=== PATIENT | male | born 1950 | race Caucasian/White ===

== ENCOUNTER → 2024-08-13 | Outpatient (CLI) | payer MEDICARE, BC, SELFPAY ==
[2024-08-13 12:15] LABS: Albumin, Serum 4.4 gm/dL (3.4-4.8); Anion Gap 6 (7-16); BUN/Creatinine Ratio 16 Ratio (12-20); Blood Urea Nitrogen 26 mg/dL (9-23); Calcium 9.8 mg/dL (8.3-10.6); Calcium (Corrected) 9.8 mg/dL (8.5-10.1); Carbon Dioxide 24.8 mMol/L (20.0-31.0); Chloride 105 mMol/L (98-107); Creatinine (Component) 1.6 mg/dL (0.6-1.3); Glucose 89 mg/dL (74-106); Osmolality,Calculated 275 (275-295); Phosphorous 4.2 mg/dL (2.4-5.1); Sodium 136 mMol/L (136-145); eGFR 45 See Note
== END | disposition home or self-care (01) ==
LOC: COPL 10:32
PROVIDERS: PCP Internal Medicine; Referring Provider Internal Medicine Cardiovascular Disease; Visit Provider Internal Medicine Cardiovascular Disease
DX: I48.21 Permanent atrial fibrillation (principal); I65.21 Occlusion and stenosis of right carotid artery; I63.9 Cerebral infarction, unspecified; N18.31 Chronic kidney disease, stage 3a
CPT/HCPCS: 36415; 80069

== ENCOUNTER → 2024-09-12 | Outpatient (CLI) | payer MEDICARE, BC, SELFPAY ==
[2024-09-12 10:57] LABS: Prostate Specific Antigen 11.58 ng/mL (0-4.00)
== END | disposition home or self-care (01) ==
LOC: SCTO 08:56
PROVIDERS: PCP Internal Medicine; Referring Provider Radiology Therapeutic Radiology; Visit Provider Radiology Therapeutic Radiology
DX: C11.9 Malignant neoplasm of nasopharynx, unspecified (principal); L65.9 Nonscarring hair loss, unspecified; F17.200 Nicotine dependence, unspecified, uncomplicated; C61 Malignant neoplasm of prostate
CPT/HCPCS: 36415; 84153

== ENCOUNTER 2024-09-17 08:52 | Outpatient (RCR) | payer MEDICARE, BC, SELFPAY ==
--- NOTE | 2024-09-17 09:22 | CTCFLWUP_ITS ---
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 C61 prostate cancer. Identification. Patient had previously been seen at the cancer center for 2 separate cancers. In 2008 patient had chemoradiation for nasopharyngeal CA and thus far has no sign of recurrence. In 2018 had robotic surgery [facility] pT3bN1 for prostate CA and postoperation therapy 6040 cGy completed 01/05/2010. Patient received 1 posttreatment Lupron injection under Dr. Saravia's direction. Patient with history of hypertension coronary artery disease underwent stent placement 03/22/2023 and did not wish to continue on with hormone manipulation. Most recent PSA was 10.3 on 05/31/2024. PET scan 08/08/2024 show no interval met disease. Repeat PSA 09/12/2024 shows 11.58 Patient with carotid blockage is being evaluated for surgery. States that he prefers to wait on any hormone manipulating drugs until afterward. He is experiencing no bone pain. I will schedule him for follow-up in 3 months with a prior PSA. Electronically signed by: Ralf Traore M.D. 09/17/2024 9:20 AM
== END 2024-10-01 23:59 | disposition home or self-care (01) ==
LOC: SCTC 08:52
PROVIDERS: PCP Internal Medicine; Referring Provider Internal Medicine; Visit Provider Radiology Therapeutic Radiology
DX: C61 Malignant neoplasm of prostate (principal); Z85.818 Personal history of malignant neoplasm of other sites of lip, oral cavity, and pharynx; Z92.3 Personal history of irradiation; I10 Essential (primary) hypertension; I25.10 Atherosclerotic heart disease of native coronary artery without angina pectoris
CPT/HCPCS: 99213; G0463

== ENCOUNTER → 2024-10-08 | Outpatient (CLI) | payer MEDICARE, BC, SELFPAY ==
[2024-10-08 09:40] LABS: Albumin, Serum 4.4 gm/dL (3.4-4.8); Anion Gap 5 (7-16); BUN/Creatinine Ratio 18 Ratio (12-20); Blood Urea Nitrogen 31 mg/dL (9-23); Calcium 9.6 mg/dL (8.3-10.6); Calcium (Corrected) 9.6 mg/dL (8.5-10.1); Carbon Dioxide 26.8 mMol/L (20.0-31.0); Chloride 107 mMol/L (98-107); Creatinine (Component) 1.7 mg/dL (0.6-1.3); Glucose 93 mg/dL (74-106); Osmolality,Calculated 284 (275-295); Phosphorous 4.7 mg/dL (2.4-5.1); Potassium 4.9 mMol/L (3.4-5.1); Sodium 139 mMol/L (136-145); eGFR 42 See Note
== END | disposition home or self-care (01) ==
PROVIDERS: PCP Internal Medicine; Referring Provider Internal Medicine Cardiovascular Disease; Visit Provider Internal Medicine Cardiovascular Disease
DX: I25.118 Atherosclerotic heart disease of native coronary artery with other forms of angina pectoris (principal); I48.21 Permanent atrial fibrillation; N18.31 Chronic kidney disease, stage 3a
CPT/HCPCS: 36415; 80069

== ENCOUNTER → 2024-11-12 | Outpatient (CLI) | payer MEDICARE, BC, SELFPAY ==
[2024-11-12 09:40] LABS: Basophils # (Auto) 0.1 Thou/mm3 (0.0-0.2); Basophils % (Auto) 1 % (0-2.5); Eosinophils # (Auto) 0.3 Thou/mm3 (0.0-0.5); Eosinophils % (Auto) 4 % (0-10); Hemoglobin 14.1 g/dL (13.5-16.0); Immature Granulocytes % (Auto) 1 % (0-0); Immature Granulocytes Auto 0.04 Thou/mm3 (0.00-0.00); Lymphocytes # (Auto) 1.7 Thou/mm3 (1.0-4.8); Lymphocytes % (Auto) 26 % (10-50); Mean Corpuscular HGB Conc 33.6 g/dl (31.0-37.0); Mean Corpuscular Hemoglobin 33.8 pg (25.0-35.0); Mean Corpuscular Volume 101 fL (80-100); Monocytes # (Auto) 0.7 Thou/mm3 (0.0-0.8); Monocytes % (Auto) 11 % (0-12); Neutrophils # (Auto) 3.8 Thou/mm3 (1.8-7.7); Neutrophils % (Auto) 57 % (37-80); Nucleated Red Blood Cell % 0 /100 WBC (0); Platelet Count 136 Thou/mm3 (140-440); RDW Standard Deviation 56.7 fL (35.1-43.9); Red Blood Count 4.17 Miln/mm3 (4.50-5.90); White Blood Count 6.6 Thou/mm3 (3.8-10.6)
[2024-11-12 09:45] LABS: Partial Thromboplastin Time 26.2 Seconds (22.0-36.0); Prothrombin Time 10.7 Seconds (9.0-12.2)
[2024-11-12 09:58] LABS: Albumin, Serum 4.2 gm/dL (3.4-4.8); Anion Gap 3 (7-16); BUN/Creatinine Ratio 20 Ratio (12-20); Blood Urea Nitrogen 30 mg/dL (9-23); Calcium 9.6 mg/dL (8.3-10.6); Calcium (Corrected) 9.6 mg/dL (8.5-10.1); Carbon Dioxide 28.1 mMol/L (20.0-31.0); Chloride 110 mMol/L (98-107); Creatinine (Component) 1.5 mg/dL (0.6-1.3); Glucose 89 mg/dL (74-106); Osmolality,Calculated 286 (275-295); Phosphorous 4.2 mg/dL (2.4-5.1); Potassium 5.4 mMol/L (3.4-5.1); Sodium 141 mMol/L (136-145); eGFR 49 See Note
== END | disposition home or self-care (01) ==
LOC: COPL 08:48
PROVIDERS: PCP Internal Medicine; Referring Provider Internal Medicine Cardiovascular Disease; Visit Provider Internal Medicine Cardiovascular Disease
DX: Z01.810 Encounter for preprocedural cardiovascular examination (principal)
CPT/HCPCS: 36415; 80069; 85025; 85610; 85730

== ENCOUNTER 2024-12-17 08:20 | Outpatient (RCR) | payer MEDICARE, BC, SELFPAY ==
--- NOTE | 2024-12-17 16:37 | CTCFLWUP_ITS ---
[facility] [address] [place], [place] [address] FOLLOW-UP NOTE Date: 12/17/2024 MR#: [id number] Name: MIKEY HAWKINS : 1950 Dx: C 61 prostate cancer. Patient previous seen at the cancer center for 2 separate cancers. In 2008 had chemoradiation for nasopharyngeal CA and thus far has no sign of recurrence. In 2018 had robotic surgery [facility] pT3b N1 for prostate CA and postop ration therapy 6840 cGy completed 01/05/2010. Received limited Lupron injection under Dr. Valderrama's direction. History of hypertension coronary artery disease underwent stent placement 03/22/2023 and did not wish to continue on with the hormone manipulation. PET scan 08/08/2024 showed no interval met disease. Repeat PSA 09/12/2024 shows 11.58. 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 Doing well overall. Will check his PSA today and see about moving forward regarding his prostate cancer situation. Addendum. Unfortunately his PSA has nearly doubled to 20.98 today. Will check PSMA PET scan and refer him to [facility] medical oncologist who specializes in prostate cancer management. Fearful of hormone manipulation due to his cardiac condition and prior CVA, and abnormal reaction to it in the past. Electronically signed by: Ralf Traore M.D. 12/17/2024 4:35 PM
== END 2024-12-30 23:59 | disposition home or self-care (01) ==
LOC: SCTC 08:20
PROVIDERS: PCP Internal Medicine; Referring Provider Internal Medicine; Visit Provider Radiology Therapeutic Radiology
DX: C61 Malignant neoplasm of prostate (principal); R97.21 Rising PSA following treatment for malignant neoplasm of prostate; Z90.79 Acquired absence of other genital organ(s); Z92.3 Personal history of irradiation
CPT/HCPCS: 99213; G0463

== ENCOUNTER → 2024-12-17 | Outpatient (CLI) | payer MEDICARE, BC, SELFPAY ==
[2024-12-17 11:03] LABS: Prostate Specific Antigen 20.98 ng/mL (0-4.00)
== END | disposition home or self-care (01) ==
PROVIDERS: PCP Internal Medicine; Referring Provider Radiology Therapeutic Radiology; Visit Provider Radiology Therapeutic Radiology
DX: C11.9 Malignant neoplasm of nasopharynx, unspecified (principal); C61 Malignant neoplasm of prostate; F17.200 Nicotine dependence, unspecified, uncomplicated; L65.9 Nonscarring hair loss, unspecified
CPT/HCPCS: 36415; 84153

== ENCOUNTER → 2025-01-03 | Outpatient (CLI) | payer MEDICARE, BC, SELFPAY ==
[2025-01-03 09:08] LABS: Collection Type, Urine Clean Catch
[2025-01-03 09:36] LABS: Basophils % (Auto) 1 % (0-2.5); Eosinophils # (Auto) 0.4 Thou/mm3 (0.0-0.5); Eosinophils % (Auto) 5 % (0-10); Hematocrit 41.3 % (41.0-53.0); Hemoglobin 13.7 g/dL (13.5-16.0); Immature Granulocytes % (Auto) 0 % (0-0); Immature Granulocytes Auto 0.02 Thou/mm3 (0.00-0.00); Lymphocytes % (Auto) 28 % (10-50); Mean Corpuscular HGB Conc 33.2 g/dl (31.0-37.0); Mean Corpuscular Hemoglobin 33.9 pg (25.0-35.0); Mean Corpuscular Volume 102 fL (80-100); Monocytes # (Auto) 0.9 Thou/mm3 (0.0-0.8); Monocytes % (Auto) 13 % (0-12); Neutrophils # (Auto) 3.7 Thou/mm3 (1.8-7.7); Neutrophils % (Auto) 53 % (37-80); Nucleated Red Blood Cell % 0 /100 WBC (0); Platelet Count 132 Thou/mm3 (140-440); RDW Standard Deviation 54.6 fL (35.1-43.9); Red Blood Count 4.04 Miln/mm3 (4.50-5.90)
[2025-01-03 09:41] LABS: Alanine Aminotransferase 23 U/L (10-49); Albumin, Serum 4.1 gm/dL (3.4-4.8); Albumin/Globulin Ratio 2.1 (1.2-2.2); Alkaline Phosphatase 61 U/L (46-116); Anion Gap 6 (7-16); Aspartate Amino Transferase 21 U/L (0-34); BUN/Creatinine Ratio 17 Ratio (12-20); Bilirubin,Total 0.9 mg/dL (0.3-1.2); Blood Urea Nitrogen 25 mg/dL (9-23); Carbon Dioxide 28.5 mMol/L (20.0-31.0); Cardiac Risk Estimate 2.1 RATIO (4.0-6.7); Chloride 108 mMol/L (98-107); Cholesterol 139 mg/dL (132-200); Creatinine (Component) 1.5 mg/dL (0.6-1.3); Glucose 101 mg/dL (74-106); HDL Cholesterol 65 mg/dL (40-60); LDL Cholesterol,Calculated 70 mg/dL (0-130); Osmolality,Calculated 287 (275-295); Potassium 4.9 mMol/L (3.4-5.1); Sodium 142 mMol/L (136-145); Total Protein 6.1 gm/dL (5.7-8.2); Triglycerides < 20 mg/dL (30-150); eGFR 49 See Note
[2025-01-03 09:59] LABS: Bilirubin,Urine Negative (Negative); Blood,Urine Negative (Negative); Clarity,Urine Clear (Clear/Hazy); Color,Urine Yellow (Lt Yel-Yel); Glucose, Urine Negative (Negative); Ketones,Urine Negative (Negative); Leukocyte Esterase,Urine Negative (Negative); Nitrite,Urine Negative (Negative); PH,Urine 6.5 (5.0-7.0); Protein,Urine Trace (Neg - Trace); RBC,Urine 4 /hpf (0-3); Specific Gravity,Urine 1.016 (1.001-1.035); Squamous Epithelial Cell,Urine < 1 /hpf (0-5); Urobilinogen,Urine Negative mg/dL (0.0-1.0); WBC,Urine < 1 /hpf (0-5)
[2025-01-03 10:18] LABS: Parathyroid Hormone Intact 83.9 pg/ml (18.5-88.0)
== END | disposition home or self-care (01) ==
LOC: COPL 08:18
PROVIDERS: PCP Internal Medicine; Referring Provider Internal Medicine; Visit Provider Internal Medicine
DX: E78.5 Hyperlipidemia, unspecified (principal); N18.30 Chronic kidney disease, stage 3 unspecified; I12.9 Hypertensive chronic kidney disease with stage 1 through stage 4 chronic kidney disease, or unspecified chronic kidney disease
CPT/HCPCS: 36415; 80053; 80061; 81001; 83970; 85025

== ENCOUNTER 2025-01-14 12:49 | Outpatient (RCR) | payer MEDICARE, BC, SELFPAY ==
--- NOTE | 2025-01-14 14:46 | CTCFLWUP_ITS ---
[facility] [address] [place], [place] [address] FOLLOW-UP NOTE Date: 01/14/2025 MR#: [id number] Name: MIKEY HAWKINS : 1950 Dx: C 61 prostate cancer Identification. Patient previous seen at the cancer center with 2 separate cancers. In 2008 had chemoradiation for nasopharyngeal CA and thus far has no sign of recurrence. In 2018 patient had robotic surgery [facility] pT3bN1 for prostate CA and postoperation therapy 6840 centigray completed 01/05/2010. Received 1 Lupron injection under urologist, direction. And reportedly had OR 1 day later. History of hypertension coronary artery disease underwent stent placement 03/22/2023 and did not wish to continue on with the hormone manipulation. Most recent PSMA PET January 08, 2025 shows increased uptake in the left common iliac lymph node left internal and external iliac lymph nodes left obturator lymph nodes left perirectal lymph node and multiple left pelvic lymph nodes. Compatible with roc mets. There appeared to be bony mets in the right anterior lateral sixth rib T5 lamina and left T9. There was no evidence of pulmonary or hepatic mets. PSA is also noted to be rising, 11.58 on 09/12/2024 and on 12/17/2024 was 20.98. Patient clearly needs to be on hormone manipulating agents, or some other antineoplastic agents to control his spreading prostate cancer. Patient scheduled to see Dr. Connor oncologist at [facility] who specializes in prostate cancer. Will schedule for follow-up afterward. I took the liberty of putting patient on Casodex 50 mg daily, a mild antiandrogen in the meantime. Electronically signed by: Ralf Traore M.D. 01/14/2025 2:44 PM
== END 2025-01-29 23:59 | disposition home or self-care (01) ==
LOC: SCTC 12:49
PROVIDERS: PCP Internal Medicine; Referring Provider Internal Medicine; Visit Provider Radiology Therapeutic Radiology
DX: C61 Malignant neoplasm of prostate (principal); R97.21 Rising PSA following treatment for malignant neoplasm of prostate; Z85.818 Personal history of malignant neoplasm of other sites of lip, oral cavity, and pharynx; Z92.21 Personal history of antineoplastic chemotherapy; Z92.3 Personal history of irradiation
CPT/HCPCS: 99213; G0463

== ENCOUNTER 2025-02-06 08:00 | Outpatient (RCR) | payer MEDICARE, OTHER, SELFPAY | END 2025-03-01 23:59 | disposition home or self-care (01) | LOC: SCTC 08:00 | PROVIDERS: PCP Internal Medicine; Referring Provider Internal Medicine; Visit Provider Radiology Therapeutic Radiology | DX: C61 Malignant neoplasm of prostate (principal); C79.51 Secondary malignant neoplasm of bone; Z85.818 Personal history of malignant neoplasm of other sites of lip, oral cavity, and pharynx | CPT/HCPCS: 99213; G0463 ==

== ENCOUNTER → 2025-03-13 | Outpatient (CLI) | payer MEDICARE, OTHER, SELFPAY ==
[2025-03-13 09:56] LABS: Basophils % (Auto) 1 % (0-2.5); Eosinophils # (Auto) 0.3 Thou/mm3 (0.0-0.5); Eosinophils % (Auto) 5 % (0-10); Hematocrit 42.7 % (41.0-53.0); Hemoglobin 14.8 g/dL (13.5-16.0); Immature Granulocytes % (Auto) 1 % (0-0); Immature Granulocytes Auto 0.03 Thou/mm3 (0.00-0.00); Lymphocytes # (Auto) 1.2 Thou/mm3 (1.0-4.8); Lymphocytes % (Auto) 19 % (10-50); Mean Corpuscular HGB Conc 34.7 g/dl (31.0-37.0); Mean Corpuscular Volume 98 fL (80-100); Monocytes # (Auto) 0.7 Thou/mm3 (0.0-0.8); Monocytes % (Auto) 11 % (0-12); Neutrophils # (Auto) 4.2 Thou/mm3 (1.8-7.7); Neutrophils % (Auto) 65 % (37-80); Nucleated Red Blood Cell % 0 /100 WBC (0); Platelet Count 150 Thou/mm3 (140-440); RDW Standard Deviation 53.7 fL (35.1-43.9); Red Blood Count 4.35 Miln/mm3 (4.50-5.90); White Blood Count 6.5 Thou/mm3 (3.8-10.6)
[2025-03-13 10:16] LABS: Alanine Aminotransferase 37 U/L (10-49); Albumin, Serum 4.7 gm/dL (3.4-4.8); Albumin/Globulin Ratio 2.1 (1.2-2.2); Alkaline Phosphatase 73 U/L (46-116); Anion Gap 10 (7-16); BUN/Creatinine Ratio 16 Ratio (12-20); Bilirubin,Total 0.8 mg/dL (0.3-1.2); Blood Urea Nitrogen 24 mg/dL (9-23); Calcium 9.6 mg/dL (8.3-10.6); Calcium (Corrected) 9.6 mg/dL (8.5-10.1); Carbon Dioxide 25.5 mMol/L (20.0-31.0); Chloride 109 mMol/L (98-107); Creatinine (Component) 1.5 mg/dL (0.6-1.3); Globulin 2.2 gm/dL (2.3-3.5); Glucose 107 mg/dL (74-106); Osmolality,Calculated 290 (275-295); Potassium 5.2 mMol/L (3.4-5.1); Sodium 144 mMol/L (136-145); Total Protein 6.9 gm/dL (5.7-8.2); eGFR 48 See Note
== END | disposition home or self-care (01) ==
LOC: SCTO 08:16
PROVIDERS: PCP Internal Medicine; Referring Provider Radiology Therapeutic Radiology; Visit Provider Radiology Therapeutic Radiology
DX: C11.9 Malignant neoplasm of nasopharynx, unspecified (principal); L65.9 Nonscarring hair loss, unspecified; F17.200 Nicotine dependence, unspecified, uncomplicated; C61 Malignant neoplasm of prostate
CPT/HCPCS: 36415; 80053; 84153; 85025

== ENCOUNTER → 2025-03-20 | Outpatient (CLI) | payer MEDICARE, OTHER, SELFPAY ==
--- NOTE | 2025-03-20 09:45 | XR_ITS ---
Examination: MRI thoracic spine with intravenous contrast TECHNIQUE: Axial sagittal MR images post intravenous administration 4 cc gadolinium Date and time: 11/20/2024 at 0942 hours INDICATIONS: Diagnosis malignant neoplasm prostate FINDINGS: Abnormal enhancement posterior spinous process in bilateral lamina T5, sagittal image 11 axial image 11 Abnormal enhancement C6 and possible enhancement L1 No abnormal enhancing epidural tumor and no impingement upon the thoracic cord IMPRESSION: Osseous metastatic disease as above
== END | disposition home or self-care (01) ==
PROVIDERS: PCP Internal Medicine; Referring Provider Radiology Therapeutic Radiology; Visit Provider Radiology Therapeutic Radiology
DX: C79.51 Secondary malignant neoplasm of bone (principal); C61 Malignant neoplasm of prostate; C11.9 Malignant neoplasm of nasopharynx, unspecified
CPT/HCPCS: 72147; A9579

== ENCOUNTER 2025-03-24 08:55 | Outpatient (RCR) | payer MEDICARE, OTHER, SELFPAY ==
--- NOTE | 2025-03-19 10:06 | CTCFLWUP_ITS ---
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 2008 chemoradiation for nasopharyngeal CA no sign of recurrence. 03/12/[address] [facility] T3bN1 postop XRT 6840 cGy completed 01/05/2010. Received 1 Lupron shot given by local urologist and had DC 1 day later. PSMA PET January 08, 2025 showed increased uptake in left common iliac node left internal/external left obturator lymph node L perirectal lymph node multiple left pelvic node. Bony mets including T5 T9 and lateral sixth rib. PSA has been climbing and was 20.98 3 18 25. Consultation with prostate cancer specialist Dr. Colby Rodriguez, [facility] who recommended Relogolix for safer cardiovascular profile, which he is tolerating fairly well. PSA has dropped to 5.7 in 03/13/2025. Patient who has been on Relugolix for about 4 weeks, Has also been recommended addition of ARSI darolutamide or enzalutamide after 6 to 8 weeks and monitor PSA every 3 months along with total testosterone until T is suppressed. A#1. History of nasopharyngeal CA 2008 treated with chemoradiation with no sign of recurrence A#2. Prostate CA 2018 T3bN! Postop XRT, limited Lupron injection given by urologist, had DC so this was stopped. A#3. Extensive mets bone and lymph nodes PSMA PET January 08, 2025. A#5. For improved cardiac safety, Relugolix recommended [facility] and after 4 weeks PSA dropped from 21 - 5.7 Patient also tolerated med well. A#6. Medical oncologist Dr. Quispe has been referred for continued care. Dr. Nikolas Rodriguez, [facility] recommends addition of ARSI darolutamide or enzalutamide A#7. Patient will get T-spine MRI tomorrow. A#8. I will see him again in 3 months time. Cc Chucky Diana MD Electronically signed by: Ralf Traore M.D. 03/19/2025 10:04 AM
--- NOTE | 2025-03-26 19:13 | CTCCONSULT_ITS ---
Patient: MIKEY HAWKINS : 1950 MR#: [id number] Page 2 of 3 CONSULTATION NOTE DATE OF CONSULTATION: 03/24/2025 NAME: MIKEY HAWKINS ACCOUNT: [id number] : 1950 AGE: 75 REFERRING PHYSICIAN: Taniya Leiva MD PRIMARY PHYSICIAN: Taniya Leiva MD REASON FOR VISIT: Stent care for prostate cancer ONCOLOGY HISTORY: DIAGNOSIS: Malignant neoplasm of nasopharynx, unspecified [ICD10] C11.9; Malignant neoplasm of nasopharynx, unspecified [ICD10] C11.9; Malignant neoplasm of prostate [ICD10] C61 s/p radical prostatectomy in 2019 A male patient with high-risk prostate cancer (Billie 9, T3N1) and extensive bone metastases presents for follow-up. His history includes prostate surgery, radiation therapy, and Lupron injections. Patient had heart attack following Lupron injection. He does not want to ever go back on Lupron. He recently started oral testosterone suppression medication, reducing PSA from 22.5 to 5.7. He has cardiovascular comorbidities including atrial fibrillation and coronary artery disease requiring two stents. The plan includes continuing current therapy, adding Xtandi (enzalutamide), monitoring PSA levels, and coordinating care with his office services clerk regarding his cardiovascular disease and medications including allopurinol. DATE OF DIAGNOSIS: 10/23/2019 STAGE/TNM: Prostatic adenocarcinoma stage IVb [id number] 4+5 equal 9 [place] score Multifocal extraprostatic extension identified in left posterior lateral aspect surgical resection margin involved in the left posterior aspect one of the lymph nodes were positive for metastatic prostatic carcinoma TREATMENT HISTORY: Care?Plan Start?Date Cycle Day Intent HISTORY OF PRESENT ILLNESS: 75-year-old male with a history of nasopharyngeal cancer status post combined chemo RT completed in September 2009. Patient was later diagnosed in 2019 with a prostatic adenocarcinoma and at that time patient had stage Michael cancer. Patient was treated with Lupron which was followed by admission to the hospital for cardiac event. Patient needed 2 stents placement. Patient after that attributed his heart attack to the Lupron injection. Patient never received any further therapy. Patient now presents to receive treatment for his metastatic prostate cancer. During his a consultation he frequently gets verbally and physically aggressive. Patient is very reluctant to receive any information regarding his diagnosis treatment options and care plan. Patient's insist on continuing consultation and offering him treatment options. 01/08/[address] scanIMPRESSION: Increased radiotraoer uptakes are seen in the left common iliac lymph node. left internal and external iliac lymph nodes. left obturator lymph nodes. left perirectal lymph node and multiple left pelvic lymph nodes are identi?ed. maximum SUV of 71 to 159.24. compatible with roc metastases. PSMA avid bony metastases involving the right anterolateral sixth rib, T5 spinous process and lamina and left T9 lamina are identi?ed as described. No evidence of PSMA avid pulmonary or hepatic metastasis. 03/20/2025 MRI thoracic spine with IV contrastFINDINGS: Abnormal enhancement posterior spinous process in bilateral lamina T5. sagittal image ll axial image ll Abnormal enhancement C6 and possible enhancement Ll No abnormal enhancing epidural tumor and no impingement upon the thoracic cord OTHER MEDICAL HISTORY/CONDITIONS: HEAD AND NECK / PROSTATE STROKE HEART ATTACK CHF CHICKEN POX MONO MUMPS MEASLES APPENDECTITOMY???HERNIA??PROSTECTOMY FAMILY HISTORY: Sibling:?SISTER?BLADDER?CA?/?LIVING SOCIAL HISTORY: Occupational?History:?RETIRED Education?Level:?Completed High School Marital?Status:? Tobacco?Pack?per?Day:?1 Tobacco?Use?Years:?56 ETOH?Use:?SOCIAL Social?History?Note:?LIVES?/ MEDICATIONS: 1. allopurinol - 300 mg 1 tab Daily 2. amiodarone - 200 mg 1 tab Daily 3. amlodipine - 5 mg 1 tab Daily 4. aspirin - 81 mg 1 tab Daily 5. atorvastatin - 80 mg 1 tab Daily 6. calcitriol - 0.5 mcg 1 Capsule Daily 7. clopidogrel - 75 mg 1 tab Daily 8. levothyroxine - 25 mcg 1 tab Daily 9. levothyroxine - 150 mcg 1 tab Daily 10. Lupron Depot - 11. relugolix - 120 mg 1 tab Daily 12. Vitamin B Complex W/C - 1 tab Daily Medications Last Reconciled by Shanell Barrow RN on 03/24/2025 ALLERGIES: No Known Drug Allergies REVIEW OF SYSTEMS: A complete 14-point review of systems was performed and is negative except as noted in interval history. PHYSICAL EXAMINATION: VITAL SIGNS: Temperature?98.2, B/P?154/88, Height?67?inches, Oxygen?Saturation?96% Weight?158?lbs PAIN: 0 - No pain ECOG Performance Status: 0 - Asymptomatic and fully active GENERAL APPEARANCE: Appears well, in no apparent distress, appropriately interactive. HEENT: Normocephalic, no temporal wasting, normal conjunctiva, no scleral icterus, normal hearing, lips without lesions, neck normal range of motion. CARDIOVASCULAR: Not assessed. PULMONARY: Normal respiratory effort, no respiratory distress or use of accessory muscles, speaking in full sentences, no tachypnea. EXTREMITIES: No pedal edema or cyanosis. SKIN: Normal skin appearance. NEUROLOGIC: Alert and oriented x4. PSHYCHIATRIC verbally and physically very aggressive. LABORATORY DATA: I have personally reviewed and interpreted each of the patient?s relevant lab tests, abnormal findings are below: Date 01/03/25 03/13/25 ??WHITE?BLOOD?COUNT?(Thou/mm3) 7.0 6.5 ??RED?BLOOD?COUNT?(Miln/mm3) 4.04?L 4.35?L ??HEMOGLOBIN?(gm/dl) 13.7 14.8 ??HEMATOCRIT?(%) 41.3 42.7 ??PLATELET?COUNT?(Thou/mm3) 132?L 150 ??NEUTROPHILS?%,?AUTO?(%) 53 65 ??LYMPH?%,?AUTO?(%) 28 19 ??NEUTROPHILS,?AUTO?(Thou/mm3) 3.7 4.2 ??GLUCOSE,RANDOM?(mg/dL) 101 107?H ??BLOOD?UREA?NITROGEN?(mg/dL) 25?H 24?H ??CREATININE?(mg/dL) 1.50?H 1.50?H ??SODIUM?(mmol/L) 142 144 ??POTASSIUM?(mmol/L) 4.9 5.2?H ??CHLORIDE?(mmol/L) 108?H 109?H ??CrCl?(CandG)?(ml/min) 43.52 43.13 ??AST/SGOT?(Unit/L) 21 ? ??ALT/SGPT?(Unit/L) 23 37 ??ALKALINE?PHOSPHATASE?(Unit/L) 61 73 ??BILIRUBIN,?TOTAL?(mg/dL) 0.9 0.8 ??PROTEIN?TOTAL?(gm/dl) 6.1 6.9 ??ALBUMIN,?SERUM?(gm/dl) 4.1 4.7 ??GLOBULIN?(gm/dl) 2.0?L 2.2?L ??ALBUMIN/GLOBULIN?RATIO 2.1 2.1 ??CALCIUM,?SERUM?(mg/dL) 9.0 9.6 ??CALCIUM?SERUM?(CORRECTED)?(mg/dL) 9.0 9.6 Laboratory, Imaging, and Diagnostic Test Results - Billie score: 9 (5+4) - Cancer staging: T3N1 - PSA: - Recent: 5.7 - Previous: 22.5 - PSMA PET scan (August 2020): No metastatic disease - PSMA PET scan (more recent, date not specified): Extensive metastases - T5 thoracic vertebrae involvement - Left T9 laminae involvement - 6th rib involvement - Several abdominal lymph nodes involved - Cardiac catheterization (recent, specific date not mentioned): Results not provided - Previous cardiac catheterization (date not specified): - 70-80% coronary artery blockage (specific vessels not mentioned) - Two stents placed - Right carotid artery: 90% stenosis (date not specified) ASSESSMENT/PLAN: Metastatic prostate cancer Patient was started on Relogolix for safer cardiovascular profile Patient is tolerating and responding well Discussed adding Xtandi to his regimen secondary to its better cardiac profile compared to abiraterone Will order Xtandi Advised patient to follow-up with cardiology closely Patient will do his labs and follow-up with us once the medication is available ORDERS: Order # Description [id number] Follow Up 3 Months CBC CMP PSA RETURN TO CLINIC: I will see him back in the clinic in 3 months. BILLING AND COMPLIANCE: I reviewed external records from providers outside my specialty as summarized above. I spent a total of 50 minutes on this patient?s care on the day of their visit excluding time spent related to any billed procedures. This time includes time spent with the patient as well as time spent documenting in the medical record, reviewing patients records and tests, obtaining history, placing orders, communicating with other healthcare professionals, counseling the patient, family or caregiver, and/or care coordination for the diagnoses above. Electronically Signed by: Froylan Quispe MD T: 7:11 PM CC: [place],? PCP: Taniya Leiva Referring: Taniya Leiva This document was completed utilizing speech recognition software. Grammatical errors, random word insertions, pronoun errors, and incomplete sentences are an occasional consequence of this system due to software limitations, ambient noise, and hardware issues. Any formal questions or concerns about the content, text or information contained within the body of this dictation should be directly addressed to the provider for clarification.
== END 2025-03-31 23:59 | disposition home or self-care (01) ==
LOC: SCTC 08:55
PROVIDERS: PCP Internal Medicine; Referring Provider Nurse Practitioner Family; Visit Provider Internal Medicine Hematology & Oncology
DX: C61 Malignant neoplasm of prostate (principal); C79.51 Secondary malignant neoplasm of bone; Z90.79 Acquired absence of other genital organ(s); Z85.818 Personal history of malignant neoplasm of other sites of lip, oral cavity, and pharynx; Z92.3 Personal history of irradiation; I25.2 Old myocardial infarction; I25.10 Atherosclerotic heart disease of native coronary artery without angina pectoris; Z95.5 Presence of coronary angioplasty implant and graft
CPT/HCPCS: 99213; G0463

== ENCOUNTER → 2025-04-03 | Outpatient (CLI) | payer MEDICARE, OTHER, SELFPAY ==
[2025-04-03 08:38] LABS: Collection Type, Urine Clean Catch; Squamous Epithelial Cell,Urine 0 /hpf (0-5)
[2025-04-03 09:09] LABS: Basophils # (Auto) 0.1 Thou/mm3 (0.0-0.2); Basophils % (Auto) 1 % (0-2.5); Eosinophils # (Auto) 0.4 Thou/mm3 (0.0-0.5); Eosinophils % (Auto) 7 % (0-10); Hematocrit 42.1 % (41.0-53.0); Hemoglobin 14.7 g/dL (13.5-16.0); Immature Granulocytes Auto 0.02 Thou/mm3 (0.00-0.00); Lymphocytes # (Auto) 1.3 Thou/mm3 (1.0-4.8); Lymphocytes % (Auto) 22 % (10-50); Mean Corpuscular HGB Conc 34.9 g/dl (31.0-37.0); Mean Corpuscular Hemoglobin 34.5 pg (25.0-35.0); Mean Corpuscular Volume 99 fL (80-100); Monocytes # (Auto) 0.6 Thou/mm3 (0.0-0.8); Monocytes % (Auto) 11 % (0-12); Neutrophils # (Auto) 3.4 Thou/mm3 (1.8-7.7); Neutrophils % (Auto) 60 % (37-80); Nucleated Red Blood Cell # 0.00 Thou/mm3 (0.00-0.00); Nucleated Red Blood Cell % 0 /100 WBC (0); Platelet Count 131 Thou/mm3 (140-440); RDW Standard Deviation 53.0 fL (35.1-43.9); Red Blood Count 4.26 Miln/mm3 (4.50-5.90); White Blood Count 5.7 Thou/mm3 (3.8-10.6)
[2025-04-03 09:17] LABS: Prostate Specific Antigen 4.18 ng/mL (0-4.00)
[2025-04-03 09:35] LABS: Creatinine MALB Rnd Ur 122 mg/dL (30-125); Microalbumin Creat Ratio 108 mg/gCrea (<30); Microalbumin, Random Urine 132 mg/L (0-300)
[2025-04-03 09:38] LABS: Alanine Aminotransferase 35 U/L (10-49); Albumin, Serum 4.5 gm/dL (3.4-4.8); Albumin/Globulin Ratio 1.8 (1.2-2.2); Alkaline Phosphatase 72 U/L (46-116); Anion Gap 5 (7-16); Aspartate Amino Transferase 33 U/L (0-34); BUN/Creatinine Ratio 13 Ratio (12-20); Bilirubin,Total 0.8 mg/dL (0.3-1.2); Blood Urea Nitrogen 20 mg/dL (9-23); Calcium 9.7 mg/dL (8.3-10.6); Calcium (Corrected) 9.7 mg/dL (8.5-10.1); Carbon Dioxide 27.2 mMol/L (20.0-31.0); Cardiac Risk Estimate 2.4 RATIO (4.0-6.7); Chloride 108 mMol/L (98-107); Cholesterol 180 mg/dL (132-200); Creatinine (Component) 1.5 mg/dL (0.6-1.3); Free T4 (Free Thyroxine) 1.92 ng/dL (0.89-1.76); Globulin 2.5 gm/dL (2.3-3.5); Glucose 102 mg/dL (74-106); HDL Cholesterol 74 mg/dL (40-60); LDL Cholesterol,Calculated 84 mg/dL (0-130); Osmolality,Calculated 282 (275-295); Potassium 5.4 mMol/L (3.4-5.1); Sodium 140 mMol/L (136-145); Thyroid Stimulating Hormone 3.52 uIU/mL (0.55-4.78); Total Protein 7.0 gm/dL (5.7-8.2); Triglycerides 110 mg/dL (30-150); eGFR 48 See Note
[2025-04-03 09:49] LABS: Bilirubin,Urine Negative (Negative); Blood,Urine Trace (Negative); Clarity,Urine Clear (Clear/Hazy); Color,Urine Yellow (Lt Yel-Yel); Glucose, Urine Negative (Negative); Hyaline Casts,Urine < 1 /hpf (0-1); Ketones,Urine Negative (Negative); Leukocyte Esterase,Urine Negative (Negative); Nitrite,Urine Negative (Negative); PH,Urine 5.5 (5.0-7.0); Protein,Urine 1+ (Neg - Trace); RBC,Urine 3 /hpf (0-3); Specific Gravity,Urine 1.017 (1.001-1.035); Urobilinogen,Urine Negative mg/dL (0.0-1.0); WBC,Urine 1 /hpf (0-5)
== END | disposition home or self-care (01) ==
LOC: COPL 07:38
PROVIDERS: PCP Internal Medicine; Referring Provider Internal Medicine; Visit Provider Internal Medicine
DX: I12.9 Hypertensive chronic kidney disease with stage 1 through stage 4 chronic kidney disease, or unspecified chronic kidney disease (principal); N18.30 Chronic kidney disease, stage 3 unspecified; E78.5 Hyperlipidemia, unspecified; E03.9 Hypothyroidism, unspecified; C61 Malignant neoplasm of prostate
CPT/HCPCS: 36415; 80053; 80061; 81001; 82043; 82570; 84153; 84439; 84443; 85025

== ENCOUNTER 2025-04-08 09:26 | Outpatient (RCR) | payer MEDICARE, OTHER, SELFPAY ==
--- NOTE | 2025-04-08 10:48 | CTCFLWUP_ITS ---
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 2008 chemoradiation for nasopharyngeal CA no sign of recurrence. 03/12/2019 radical prostectomy [facility] T3b N1 postop XRT 6840 centigray completed 01/05/2010. Received 1 Lupron shot given by local urologist had [place] 1 day later. PSA has been rising up to 21 and 12/17/2024. PSMA PET January 08, 2025 showed increased uptake left common iliac node left internal/external left obturator lymph node left perirectal lymph node multiple left pelvic node. Bone mets T5-9 lateral 6 rib. MRI T-spine 03/20/2025 osseous mets but no sign of any impending fracture or impingement on the spinal cord. Dr. Colby Connor MD prostate cancer special [facility] recommended Relugolix with improved CVS profile, which has lowered his PSA to 4.18 on most recent blood draw of 04/03/2025. Saw Dr. Quispe 03/24/2025 who has ordered Xtandi Patient states that he prefers to be followed by Dr. Connor of [facility] from now on. Said he will call for the appointment. Given a follow-up appointment with [facility] t for 2 months from now. Electronically signed by: Ralf Traore M.D. 04/08/2025 10:45 AM
== END 2025-05-01 23:59 | disposition home or self-care (01) ==
LOC: SCTC 09:26
PROVIDERS: PCP Internal Medicine; Referring Provider Internal Medicine; Visit Provider Radiology Therapeutic Radiology
DX: C61 Malignant neoplasm of prostate (principal)
CPT/HCPCS: 99212; G0463

== ENCOUNTER 2025-05-31 11:16 | Inpatient (IN) | payer MEDICARE, OTHER, SELFPAY ==
[2025-05-31] VITALS (10 sets, daily range): BP systolic 121–189; BP diastolic 69–99; PULSE 66–82; RESP 16–95; TEMP 36.2–36.9; O2SAT 94–96; BMI 24.3
--- NOTE | 2025-05-31 11:56 | XR_ITS ---
Examination: CT abdomen with intravenous contrast CT pelvis with intravenous contrast 2-D coronal reconstructions 2-D sagittal reconstructions Date and time of exam:May 31, 2025, 1408 hrs., Comparison August 18, 2024. Indications: Abdominal pain and rectal bleeding beginning yesterday.. CTDI: vol (mGy) 6.91 DLP: (mGycm) 387 Technique: Multiple axial sections of the abdomen and pelvis have been obtained. 64 slice high-resolution scanner used. 3 mm axial sections have been obtained, post intravenous injection 60 cc [id number]-370 2-D sagittal, coronal reconstructions obtained. Low dose protocols were performed. One or more of the following dose reduction techniques were used; automated exposure control, adjustment of the mA and/or KV according to patient size, use of iterative reconstruction technique. Findings: No focal liver or splenic lesions. No gallstones. No pancreatic mass. Nodular thickening left adrenal gland. Moderate renal parenchymal scar formation. Infrarenal abdominal aortic aneurysm, AP dimension 3.7 cm, no free blood in the abdomen. No bowel obstruction No pericecal inflammatory change. Colonic diverticulosis Rectal wall axial image 191 is diffusely thickened Urinary bladder intact. Moderate osteopenia Impression: Moderate bilateral renal parenchymal scar formation Infrarenal abdominal aortic aneurysm AP dimension 3.7 cm Colonic diverticulosis. Rectal wall is thickened, differential would include proctitis, rectal tumor, recommend direct inspection.
--- NOTE | 2025-05-31 11:58 | PD.EDRME ---
Rapid Medical Screening Exam RME Arrival date/time: 05/31/25 11:16 Chief Complaint: GI Bleed Time Seen by Provider: 05/31/25 11:36 Vital signs: Vital Signs Temperature 98.1 F 05/31/25 11:33 Pulse Rate 82 05/31/25 11:33 Respiratory Rate 18 05/31/25 11:33 Blood Pressure 121/69 05/31/25 11:33 Pulse Oximetry (%) 96 05/31/25 11:33 Oxygen Delivery Method Room Air 05/31/25 11:33 RME Narrative: 75-year-old male with history of recurrent prostate cancer here for rectal bleeding x 4 days. States is concerned due to history in the past of GI bleed from Eliquis. No longer on Eliquis is on Plavix 75. He thinks the new medication accounting for possible side effects is darolutamide 2 tab 300mg bid.
--- NOTE | 2025-05-31 12:23 | EKG_ITS ---
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
--- NOTE | 2025-05-31 12:24 | PD.EDGIBLD ---
ED GI Bleed RME/HPI General Chief complaint: GI Bleed Stated complaint: RECAL BLEED Time Seen by Provider: 05/31/25 11:36 Arrival date/time: 05/31/25 11:16 RME / HPI RME / HPI Narrative: 75-year-old male with history of recurrent prostate cancer here for rectal bleeding x 4 episodes since this morning severity moderate. Described as melanotic stool. Associated with lower abdominal pain, described as dull ache, symptoms are moderate. States is concerned due to history in the past of GI bleed from Eliquis. No longer on Eliquis is on Plavix 75 and aspirin 81 mg p.o. daily. He thinks the new medication accounting for possible side effects is darolutamide 2 tab 300mg bid for recurrence of prostate cancer. Related Data Home Medications ?Medication ?Instructions ?Recorded ?Confirmed aspirin 81 mg tablet 81 mg PO QDAY 01/07/21 07/23/24 atorvastatin 80 mg tablet 80 mg PO QDAY 01/07/21 07/23/24 clopidogrel 75 mg tablet 75 mg PO QPM 01/07/21 07/23/24 allopurinol 300 mg tablet 300 mg PO DAILY 03/22/23 07/23/24 amiodarone 200 mg tablet 200 mg PO BID 03/22/23 07/23/24 atenolol 50 mg tablet 50 mg PO BID 03/22/23 07/23/24 levothyroxine 25 mcg tablet 150 mcg PO DAILY 03/22/23 07/23/24 Previous Rx's ?Medication ?Instructions ?Recorded calcitriol 0.25 mcg capsule 0.5 mcg (2 x 0.25 mcg) PO QDAY #30 01/09/21 caps Allergies Allergy/AdvReac Type Severity Reaction Status Date / Time No Known Allergies Allergy Verified 05/31/25 11:19 Review of Systems Review of Systems Narrative Review of Systems: Review of system reviewed and within normal limits except mentioned in HPI ED Exam Narrative Physical exam: VITAL SIGNS: Reviewed. GENERAL APPEARANCE: Alert and interactive, follows commands, no acute distress, HEAD AND FACE: Non-traumatic. ENT: PERRL, pink conjunctivitis, eyelid no trauma, Mucous membrane moist. NECK: Supple, nontender, no nuchal rigidity. CHEST: No tenderness, no crepitus, no paradoxical movement, no retractions. LUNGS: Clear, well ventilated, symmetric, no rales, no wheezing, no ronchi, no stridor, good breath sounds bilaterally. HEART: Regular rate, regular rhythm, no murmur, no gallops. ABDOMEN: Soft, positive bowel sounds, nondistended, no guarding, lower abdominal tenderness, no rebound, no masses, RECTAL: Done by me, and significant melanotic stool noted on the examining finger, strongly positive for occult blood no active bleeding noted GENITAL: Deferred. NEUROLOGICAL: Gross motor function intact sensory function intact, Appropriate for age. MUSCULOSKELETAL: low back nontender, full range of motion. EXTREMITIES: Nontender, full range of motion. SKIN: Color pink, dry, no rash, no lacerations, no abrasions, no contusions. LYMPHATICS: Deferred. Course Quality Measures none Orders Category Date Time Status COVID-19 Screening Questionnaire NOW Care 05/31/25 14:[address] Screening NOW Care 05/31/25 11:57 Active Decision to Admit X1 Care 05/31/25 14:39 Active EKG (ED ONLY) *Do not use* NOW Care 05/31/25 12:23 Completed IV [Insert IV] NOW Care 05/31/25 11:56 Active NPO after Midnight ONCE Care 05/31/25 14:34 Active Occult Blood,Stool (Nursing) ONCE Care 05/31/25 12:22 Active Consult to Gastroenterology Stat Cons 05/31/25 13:29 Ordered Diet NPO after Midnight Diet 06/01/25 00:[address] abdomen pelvis w con Stat Exams 05/31/25 11:56 Completed EKG (ED Only) Stat Exams 05/31/25 12:23 Draft CBC Stat Lab 05/31/25 12:35 Completed CMP [Comprehensive Metabolic Panel] Stat Lab 05/31/25 12:35 Completed Lipase Stat Lab 05/31/25 12:35 Completed PT [Prothrombin Time with INR] Stat Lab 05/31/25 12:35 Completed PTT [Partial Thromboplastin Time] Stat Lab 05/31/25 12:35 Completed Troponin I Stat Lab 05/31/25 12:35 Completed Type and Screen Stat Lab 05/31/25 12:35 Completed UA [Urinalysis] Stat Lab 05/31/25 11:57 Ordered Morphine Inj Med 05/31/25 12:22 Discontinued 4 mg IVP X1 ONE Ondansetron Inj [Zofran Inj] Med 05/31/25 12:22 Discontinued 4 mg IVP X1 ONE Pantoprazole Inj [Protonix Inj] Med 05/31/25 12:22 Discontinued 80 mg IVP X1 ONE cefTRIAXone/D5w 1gm IV premix [Rocephin/D5w 1gm IV Med 05/31/25 12:22 Discontinued premix] 1 gm in 50 ml IV X1 Vital Signs Vital signs: Vital Signs Temperature 98.1 F 05/31/25 11:33 Pulse Rate 82 05/31/25 11:33 Respiratory Rate 18 05/31/25 11:33 Blood Pressure 121/69 05/31/25 11:33 Pulse Oximetry (%) 96 05/31/25 11:33 Oxygen Delivery Method Room Air 05/31/25 11:33 GI Bleed MDM Narrative MDM Narrative:: 75-year-old male with history of recurrent prostate cancer here for rectal bleeding x 4 episodes since this morning severity moderate. Described as melanotic stool. Associated with lower abdominal pain, described as dull ache, symptoms are moderate. States is concerned due to history in the past of GI bleed from Eliquis. No longer on Eliquis is on Plavix 75 and aspirin 81 mg p.o. daily. He thinks the new medication accounting for possible side effects is darolutamide 2 tab 300mg bid for recurrence of prostate cancer. EKG showed sinus rhythm, ventricular rate of 70 bpm, no ST segment elevation or depressions. Patient's hemoglobin showed a drop of 1.8 from 14.7-13.3. A month ago. Rectal exam showed melanotic stool strongly positive for occult blood no active bleeding noted. CT scan of the abdomen and pelvis showed Moderate bilateral renal parenchymal scar formation Infrarenal abdominal aortic aneurysm AP dimension 3.7 cm Colonic diverticulosis. Rectal wall is thickened, differential would include proctitis, rectal tumor, recommend direct inspection. Patient received ceftriaxone IV morphine Zofran and Protonix IV. Discussed the case with GI specialist Dr. Haines, and told me to place the patient on n.p.o. for possible scope tomorrow Discussed case with hospitalist, who accepted admission. Patient data External records reviewed:: None Clinical information provided by:: patient Social determinants that could affect healthcare access:: none Patient has the following chronic illnesses:: History of prostate cancer How is presenting disease/condition affected by chronic disease/condition?: exacerbated by Evaluation data The following diagnostics were reviewed and interpreted by me:: lab results, radiology exam(s) and EKG tracing(s) Lab and/or radiology exams considered but not ordered:: None Interpretation Summary: See results MDM Medications / Prescriptions Medications or Prescriptions considered but not ordered:: None Medication administrations:: Medication Administration History Discontinued Medications Ceftriaxone Sodium/Dextrose (Rocephin/D5w 1gm Iv Premix) 1 gm in 50 mls @ 100 mls/hr IV X1 ONE Stop: 05/31/25 12:51 Last Admin: 05/31/25 13:06 Dose: 100 mls/hr Documented By: ED Morphine Sulfate (Morphine Sulf Inj 10 Mg/Ml Vial) 4 mg IVP X1 ONE Stop: 05/31/25 12:23 Last Admin: 05/31/25 12:59 Dose: 4 mg Documented By: ED Ondansetron HCl (Ondansetron Inj 2 Mg/Ml Inj 2 Ml) 4 mg IVP X1 ONE; Protocol Stop: 05/31/25 12:23 Last Admin: 05/31/25 12:53 Dose: 4 mg Documented By: ED Pantoprazole Sodium (Pantoprazole Inj 40 Mg Vial) 80 mg IVP X1 ONE Stop: 05/31/25 12:23 Last Admin: 05/31/25 13:03 Dose: 80 mg Documented By: ED Protonix, Zofran, morphine and ceftriaxone IV Consultations Consultation(s) initiated? (list below): Yes Consultation #1 (Physician, Specialty, Details): Dr. Haines thank you DrYolande Diagnosis GI bleed differential diagnosis: infectious diarrhea, Upper gastrointestinal hemorrhage, Lower gastrointestinal hemorrhage and hematochezia Most likely diagnosis given after review of the tests above:: GI bleed, Admission Indicated Admission indicated?: indicated Admission Request Was there a request for admission?: Yes Admission Attestation Admission request attestation: Discussed case with [Dr. Arciniega] from Hospitalist service regarding admission. Discussed patients ED course, exam findings, labs, and radiology results. The Hospitalist [agrees] to accept the patient for admission. Disposition Plan Disposition Plan: Admit Discharge Plan Plan Patient Disposition: Admit Acute Care w/in Hospital Discharge Disposition comment: stable Prescriptions/Referrals Prescriptions/Med Rec: No Action atorvastatin 80 mg Tablet 80 mg PO QDAY aspirin 81 mg Tablet 81 mg PO QDAY clopidogrel 75 mg Tablet 75 mg PO QPM calcitriol 0.25 mcg Capsule 0.5 mcg PO QDAY Qty: 30 0RF levothyroxine 25 mcg tablet 150 mcg PO DAILY amiodarone 200 mg Tablet 200 mg PO BID allopurinol 300 mg Tablet 300 mg PO DAILY atenolol 50 mg Tablet 50 mg PO BID Referrals: Jones Diana MD [Primary Care Provider] - In 1 week Problem List Clinical Impression: GI bleed, History of prostate cancer Patient/Caregiver Discharge Instructions Print Language: [place] Stand Alone Forms: [facility] Award Info., Patient Portal Info Letter
--- NOTE | 2025-05-31 12:33 | PC.NURSE ---
Pt. here to bed 10 from home, pt. states he had a BM this morning and there was bright red blood.
--- NOTE | 2025-05-31 12:35 | PC.NURSE ---
Pt. states he has prostate cancer even though he had his prostate removed 5 years ago. is bedside and states this is pt.'s 3rd round of cancer. Pt. states he is SOB, pt. states he has been SOB since his heart attack 5 years ago.
[2025-05-31] MEDS: ONDANSETRON INJ 2 MG/ML INJ 2 ML 4 MG IVP (12:53)
[2025-05-31] MEDS: MORPHINE SULF INJ 10 MG/ML VIAL 4 MG IVP (12:59)
[2025-05-31 13:00] LABS: Basophils # (Auto) 0.0 Thou/mm3 (0.0-0.2); Basophils % (Auto) 1 % (0-2.5); Eosinophils # (Auto) 0.3 Thou/mm3 (0.0-0.5); Eosinophils % (Auto) 3 % (0-10); Hematocrit 38.7 % (41.0-53.0); Hemoglobin 13.3 g/dL (13.5-16.0); Immature Granulocytes Auto 0.02 Thou/mm3 (0.00-0.00); Lymphocytes # (Auto) 1.4 Thou/mm3 (1.0-4.8); Lymphocytes % (Auto) 16 % (10-50); Mean Corpuscular HGB Conc 34.4 g/dl (31.0-37.0); Mean Corpuscular Hemoglobin 35.7 pg (25.0-35.0); Mean Corpuscular Volume 104 fL (80-100); Monocytes # (Auto) 1.2 Thou/mm3 (0.0-0.8); Monocytes % (Auto) 15 % (0-12); Neutrophils # (Auto) 5.3 Thou/mm3 (1.8-7.7); Neutrophils % (Auto) 65 % (37-80); Nucleated Red Blood Cell # 0.00 Thou/mm3 (0.00-0.00); Nucleated Red Blood Cell % 0 /100 WBC (0); Platelet Count 140 Thou/mm3 (140-440); RDW Standard Deviation 55.5 fL (35.1-43.9); Red Blood Count 3.73 Miln/mm3 (4.50-5.90); White Blood Count 8.2 Thou/mm3 (3.8-10.6)
[2025-05-31] MEDS: cefTRIAXone/D5w 1gm IV premix 1 GM/50 ML BAG IV (13:06)
--- NOTE | 2025-05-31 13:10 | PC.NURSE ---
Pt. coughing, states he has been a smoker 57 years.
[2025-05-31 13:13] LABS: INR 1.0 (0.9-1.3); Partial Thromboplastin Time 24.5 Seconds (22.0-36.0); Prothrombin Time 10.7 Seconds (9.0-12.2)
[2025-05-31 13:19] LABS: Alanine Aminotransferase 36 U/L (10-49); Albumin, Serum 4.2 gm/dL (3.4-4.8); Albumin/Globulin Ratio 2.0 (1.2-2.2); Alkaline Phosphatase 72 U/L (46-116); Anion Gap 10 (7-16); Aspartate Amino Transferase 33 U/L (0-34); BUN/Creatinine Ratio 16 Ratio (12-20); Bilirubin,Total 0.8 mg/dL (0.3-1.2); Blood Urea Nitrogen 22 mg/dL (9-23); Calcium 9.9 mg/dL (8.3-10.6); Calcium (Corrected) 9.9 mg/dL (8.5-10.1); Carbon Dioxide 22.4 mMol/L (20.0-31.0); Chloride 111 mMol/L (98-107); Creatinine (Component) 1.4 mg/dL (0.6-1.3); Estimated Creatinine Clearance 44.1 mL/min (>60); Globulin 2.1 gm/dL (2.3-3.5); Glucose 135 mg/dL (74-106); Lipase 38 U/L (12-53); Osmolality,Calculated 290 (275-295); Potassium 4.1 mMol/L (3.4-5.1); Sodium 143 mMol/L (136-145); Total Protein 6.3 gm/dL (5.7-8.2); Troponin I 0.024 ng/mL (0.0-0.045); eGFR 52 See Note
--- NOTE | 2025-05-31 15:35 | ESHP_ITS ---
<Statement entered by Matilda Arciniega MD - 05/31/25 18:13> Patient was seen and examined at bedside. I agree on the assessment and plan on this note as documented by resident Dana Mims MD PGY1. 75-year-old male with past medical history of prostate adenocarcinoma stage IVb, hypertension, atrial fibrillation, CAD status post PCI LAD follows Dr. Rodriguez, hypothyroidism and history of nasopharyngeal carcinoma who presented to [facility] with a chief complaint of bright red blood in stool, patient reports experiencing crampy pain in lower abdomen which has worsened since yesterday, this morning patient noticed bright red blood on toilet paper, denied any pain. Patient does endorse an episode of nonbloody emesis last night. Rectal exam done by ED provider showed dark stool and positive FOBT. Patient does have history of 54 smoking pack years, daily alcohol use reports drinking 3-4 beers per day and occasional liquor. CT abdomen pelvis in ED did show infrarenal abdominal aneurysm, diverticulosis, rectal wall thickening with differential proctitis. Was given ceftriaxone x 1 in ED. Patient was noted to have elevated blood pressure in the ED at bedside SBP 180/DBP 100, denies any pain. Resume home dose amiodarone, labetalol as needed for blood pressure management. Patient not on any anticoagulation at home, reports that he is currently following up with [facility] for relapse prostate cancer. Will hold antiplatelet and anticoagulants for now. Disposition telemetry for GI bleed workup. Case discussed with attending Dr. Lissette Webster MD PGY-2 Documentation for date of: 05/31/25 HPI History of Present Illness Chief complaint: rectal bleed History of present illness: Mr. Sharp is a 75 year old man with past medical significant for nasopharyngeal cancer s/p chemoradiation 2008, prostate adenocarcinoma stage IVb, HTN, A-fib, CAD s/p PCTA, Hypothyrodism who presented to the ED on 05/31/2025 with chief complain of rectal bleed. Patient reported experiencing crampy pain in the lower abdominal pain last night. Subsequently this morning, he noticed bright red blood after wiping with no pain. He denies hematochezia, melena. Additionally stated he had had Gi bleed in the past from Eliquis. Endorses 1 episode of nonbloody, nonbilious emesis after dinner. He denies weakness, chest pain, palpitation, shortness of breath, changes in bowel movements and hematuria. ED Course: -Initial vitals were within normal limits except for BP 181/110 -Labs significant for RBC 3.73, Hgb 31.3, HCT 38.7, MCV 104, Cr 1.4, GFR 52, glucose 135 -Imaging included abdominal/pelvis CT showed infrarenal abdominal aneurysm, diverticulosis, rectal wall thickening. EKG unremarkable -In the ED, patient was given Zofran 4mg for nausea, morphine 4mg , pantoprazole 80 mg, ceftriaxone. -Patient was admitted for GI bleed evaluation and management Review of Systems Review of systems otherwise negative except what is mentioned above. Past Medical History: mention above Family History: Noncontributory Surgical History: cardiac cath 2022,prostate CA radical surgery march 2019, Social History: Smoke 1 pack /day for 54 years, drinks 3-4 bears per day, 1 glass of vodka every other, denies recreational drug use Current Medications: (Source:med list ) Allergies: No known drug allergies Exam Vital Signs Temp Pulse Resp BP Pulse Ox O2 Del Method 98.0 F 72 17 164/87 H 95 Room Air 05/31/25 12:44 05/31/25 12:44 05/31/25 12:44 05/31/25 12:44 05/31/25 12:44 05/31/25 12:44 Narrative Exam General: Alert, no acute distress.Conversational and non-toxic appearing. Skin: Warm, dry, intact. No rash or ecchymoses. Head: Normocephalic, atraumatic. Eye: Normal conjunctiva, PERRL. Throat: Oral mucosa moist. No obvious lesions in oropharynx. Cardiovascular: Regular rate and rhythm, no murmur, +S1/S2. Respiratory: Lungs are clear to auscultation, crackles more prominent at the right base, respirations unlabored, no wheezing. Gastrointestinal: Soft, mild rigidity noted in the right lower quadrant, non- distended. No guarding or rebound tenderness. Extremities: No edema, no cyanosis, no clubbing. Neuro: Alert and oriented x3.No focal deficits observed. Conversant, moving all extremities. No overt cerebellar signs/incoordination. Psychiatric: Cooperative, appropriate affect Results: Labs 06/01/25 04:20 06/01/25 04:20 Labs: Short CBC 05/31/25 Range/Units 12:35 WBC 8.2 (3.8-10.6) Thou/mm3 Hgb 13.3 L (13.5-16.0) g/dL Hct 38.7 L (41.0-53.0) % Plt Count 140 (140-440) Thou/mm3 BMP 05/31/25 12:35 Sodium 143 Potassium 4.1 Chloride 111 H Carbon Dioxide 22.4 BUN 22 Creatinine 1.4 H Glucose 135 H Calcium 9.9 Cardiac Enzymes 05/31/25 Range/Units 12:35 Troponin I 0.024 (0.0-0.045) ng/mL Liver Function 05/31/25 Range/Units 12:35 Total Bilirubin 0.8 (0.3-1.2) mg/dL AST 33 (0-34) U/L ALT 36 (10-49) U/L Alkaline Phosphatase 72 (46-116) U/L Albumin 4.2 (3.4-4.8) gm/dL Quality Measures Quality Measures none Advance care planning discussed with:: patient and spouse Medications Home Medications and Allergies Home Medications ?Medication ?Instructions ?Recorded ?Confirmed ?Type aspirin 81 mg tablet 81 mg PO QDAY 01/07/2106/01 History atorvastatin 80 mg tablet 80 mg PO QDAY 01/07/2106/01 History clopidogrel 75 mg tablet 75 mg PO QPM 01/07/21 History allopurinol 300 mg tablet 300 mg PO DAILY 03/22/23 History amiodarone 200 mg tablet 200 mg PO BID 03/22/2306/01 History atenolol 50 mg tablet 50 mg PO QDAY 03/22/2306/01 History levothyroxine 25 mcg tablet 150 mcg PO DAILY 03/22/23 06/01/25 History Allergies Allergy/AdvReac Type Severity Reaction Status Date / Time No Known Allergies Allergy Verified 05/31/25 11:19 Visit Medications Albuterol/Ipratropium (Albuterol/Ipratropium (Duoneb) Rt Adriane 3 Ml Nebu) 3 ml INH Q2HR PRN PRN Reason: SHORTNESS OF BREATH OR WHEEZE Stop: 06/30/25 15:28 Discontinued Medications Ceftriaxone Sodium/Dextrose (Rocephin/D5w 1gm Iv Premix) 1 gm in 50 mls @ 100 mls/hr IV X1 ONE Stop: 05/31/25 12:51 Last Admin: 05/31/25 13:06 Dose: 100 mls/hr Morphine Sulfate (Morphine Sulf Inj 10 Mg/Ml Vial) 4 mg IVP X1 ONE Stop: 05/31/25 12:23 Last Admin: 05/31/25 12:59 Dose: 4 mg Ondansetron HCl (Ondansetron Inj 2 Mg/Ml Inj 2 Ml) 4 mg IVP X1 ONE; Protocol Stop: 05/31/25 12:23 Last Admin: 05/31/25 12:53 Dose: 4 mg Pantoprazole Sodium (Pantoprazole Inj 40 Mg Vial) 80 mg IVP X1 ONE Stop: 05/31/25 12:23 Last Admin: 05/31/25 13:03 Dose: 80 mg Assessment & Plan Plan Mr. Sharp is a 75 year old man with past medical significant for nasopharyngeal cancer s/p chemoradiation 2008, prostate adenocarcinoma stage IVb, HTN, A-fib, CAD s/p PCTA, Hypothyrodism who presented to the ED on 05/31/2025 with chief complain of rectal bleed and abdominal pain for 2 days. Admitted for GI bleed work up and management. #GI bleed likely lower # Acute macrocytic anemia Patient present with 1 day of bright blood rectal bleed with no melena, hematochezia, hematuria and hematemesis. Concern for possible lower GI bleed due to patient clinical presentation. Rectal exam showed melanotic stool strongly positive for occult blood with no active bleeding. CT abd/pelvis showed colonic diverticulosis, infrarenal abdominal aortic aneurysm AP dimension 3.7cm On admission hemoglobin 13.3, hematocrit 38.7. MCV 104. Plan - Dr. Haines consulted - [facility] appreciated - Planned to start Golytely for possible colonoscopy tomorrow - NPO after midnight - Stool ocult - Started Pantoprazole - monitor H/H #A-Fib RVR, rate controlled Pt has a history of A-fib for which is controlled medication amiodarone. Not on any anticoagulation. Follow-up within the sagger preparer Dr. Rodriguez. In the ED blood pressure was 181/110 and HR 89 EKG showed sinus rhythm with QTc of 505 CHADsVAS score 4.8 and?6.7% risk of stroke/TIA/systemic embolism HAS-BLED score 5 - pt is at high risk for major bleeding Plan - Resumed home amiodarone 200 mg p.o. - Started 10 mg IVP labetalol - Will continue to monitor telemetry - Keep K > 4 and Mg > 2 #CAD S/P LAD stent # Severe Right carotid stenosis History of coronary artery disease underwent stent placement by on 03/22/2023 in LAD. Normal left ventricular function, EF 65-70%. On 07/23/2024 angiogram showed 90% stenosis of right internal carotid artery. Patient currently reports no chest pain. Plan - Daily weight - Keep K > 4 and Mg > 2 - Plan to consult cardiology:recommendation appreciated - CTM CBC and CMP # Prostate Adenocarcinoma stage IVb In 2019 patient had robotic surgery [facility] [id number] for prostate CA and postoperation therapy [id number] centigray completed 01/05/2010. Home meds: Xtandi 03/12/2019 radical prostatectomy PSA has been rising up to 21 on 12/17/2024 Plan - Follow-up with oncology Dr. Traore #Nasopharyngeal carcinoma s/p chemoradiation In 2008 had chemoradiation for nasopharyngeal CA and thus far has no sign of recurrence. Plan - Follow-up with oncologist outpatient #Hypothyroidism Plan - resume home levothyroxine #Primary Hypertension Patient has a history of hypertension. Home meds atenolol. Plan - Continue to monitor - Pending med recc #Hyperlipidemia On home medication atorvastatin 80 mg p.o. Last lipid panel on 04/03/25: triglyceride 110, cholesterol 180, HDL 74. Plan - Continue to monitor -Pending med recc Hospital management: Lines: peripheral IV Diet: NPO Bowel: none GI prophylaxis: pantoprazole DVT prophylaxis: SCDs Disposition: tele for management of lower GIB CODE STATUS: Full code Patient seen and assessed under supervision of attending physician and discuss with senior resident Dr. Arciniega PGY-2 Dana Mims MD PGY-1, Internal Medicine Attending Provider Attestation/Addendum I, Lissette Castañeda, DO, attest that I was physically present for the cervantes portions of the service and evaluated the patient with the resident and I reviewed and discussed the case with the resident and agree with the resident's findings and plans of care as documented above Patient is a 75-year-old male with past medical history nasal carcinoma status post chemoradiation, stage IV prostate cancer, hypertension, A-fib, CAD who presented to the ED due to sudden onset of bright red blood per rectum that began this morning. Patient states that his last meal was dinnertime last night during which he had some bandlike abdominal pain in his lower abdomen with his meal followed by 1 episode of nonbilious emesis. He has never had the symptoms in the past. He does have history of constipation. He has had a colonoscopy in the past, that was unremarkable reportedly. He denies any nausea, chest pain or shortness of breath otherwise. He also denies any fevers or chills. Patient takes aspirin and Plavix due to CAD. CT abdomen and pelvis was done in the ED showing a 3.7 cm infrarenal abdominal aneurysm, diverticulosis and rectal wall thickening concerning for proctitis. Patient denies any pain in his rectum. GI called from ED and recommended starting patient on GoLytely for colonoscopy tomorrow. Hemoglobin is currently 13.3. Will follow-up with repeat H&H. Admit to telemetry for further workup and medical management of GI bleed. Patient is otherwise hemodynamically stable at this time.
[2025-05-31] MEDS: NA SU/NAHCO3/KC/PEG (Golytely) 4,000 ML BTL 4000 ML PO (19:58)
[2025-05-31] MEDS: AMIODARONE HCL 200 MG TABLET PO (20:05)
[2025-05-31] MEDS: hydrALAZINE INJ 20 MG/ML VIAL 10 MG IVP (20:53)
[2025-05-31] MEDS: ACETAMINOPHEN 325 MG TABLET 650 MG PO (21:37)
--- NOTE | 2025-05-31 22:03 | PC.NURSE ---
Tried to contact [facility] regarding patients med rec. Was unable to get a hold of (Bettina) and was unable to do med rec. Patient does not remmeber the medication that he takes at home.
[2025-06-01] VITALS (18 sets, daily range): BP systolic 94–179; BP diastolic 55–104; PULSE 54–75; RESP 12–96; TEMP 36.1–36.7; O2SAT 93–98
[2025-06-01] MEDS: LEVOTHYROXINE SODIUM 125 MCG, LEVOTHYROXINE SODIUM 25 MCG 150 MCG PO (05:37)
[2025-06-01 05:46] LABS: Basophils # (Auto) 0.0 Thou/mm3 (0.0-0.2); Basophils % (Auto) 0 % (0-2.5); Eosinophils # (Auto) 0.4 Thou/mm3 (0.0-0.5); Eosinophils % (Auto) 5 % (0-10); Hematocrit 39.9 % (41.0-53.0); Hemoglobin 13.5 g/dL (13.5-16.0); Immature Granulocytes Auto 0.04 Thou/mm3 (0.00-0.00); Lymphocytes # (Auto) 1.5 Thou/mm3 (1.0-4.8); Lymphocytes % (Auto) 18 % (10-50); Mean Corpuscular HGB Conc 33.8 g/dl (31.0-37.0); Mean Corpuscular Hemoglobin 35.3 pg (25.0-35.0); Mean Corpuscular Volume 105 fL (80-100); Monocytes # (Auto) 1.1 Thou/mm3 (0.0-0.8); Monocytes % (Auto) 14 % (0-12); Neutrophils # (Auto) 5.0 Thou/mm3 (1.8-7.7); Neutrophils % (Auto) 62 % (37-80); Nucleated Red Blood Cell # 0.00 Thou/mm3 (0.00-0.00); Nucleated Red Blood Cell % 0 /100 WBC (0); Platelet Count 147 Thou/mm3 (140-440); RDW Standard Deviation 56.3 fL (35.1-43.9); Red Blood Count 3.82 Miln/mm3 (4.50-5.90); White Blood Count 8.1 Thou/mm3 (3.8-10.6)
[2025-06-01 06:48] LABS: Alanine Aminotransferase 35 U/L (10-49); Albumin, Serum 4.1 gm/dL (3.4-4.8); Albumin/Globulin Ratio 2.0 (1.2-2.2); Alkaline Phosphatase 74 U/L (46-116); Anion Gap 11 (7-16); Aspartate Amino Transferase 36 U/L (0-34); BUN/Creatinine Ratio 13 Ratio (12-20); Bilirubin,Total 0.8 mg/dL (0.3-1.2); Blood Urea Nitrogen 17 mg/dL (9-23); Calcium 9.5 mg/dL (8.3-10.6); Calcium (Corrected) 9.5 mg/dL (8.5-10.1); Carbon Dioxide 24.1 mMol/L (20.0-31.0); Chloride 106 mMol/L (98-107); Creatinine (Component) 1.3 mg/dL (0.6-1.3); Estimated Creatinine Clearance 47.5 mL/min (>60); Globulin 2.1 gm/dL (2.3-3.5); Glucose 86 mg/dL (74-106); Magnesium 1.8 mg/dL (1.6-2.6); Osmolality,Calculated 281 (275-295); Phosphorous 3.1 mg/dL (2.4-5.1); Potassium 4.3 mMol/L (3.4-5.1); Sodium 141 mMol/L (136-145); Total Protein 6.2 gm/dL (5.7-8.2); eGFR 57 See Note
[2025-06-01] MEDS: NA SU/NAHCO3/KC/PEG (Golytely) 4,000 ML BTL 4000 ML PO (08:22)
[2025-06-01] MEDS: AMIODARONE HCL 200 MG TABLET PO ×2 (08:23→21:01)
--- NOTE | 2025-06-01 08:50 | PC.SS ---
Addendum entered by COBY Rahman 06/01/25 14:21: Rounding note: pending colonoscopy. Original Note: Patient is a 75 year old male presenting to the hospital for GI bleed workup. BRICKLAYER SUPERVISOR met with patient at bedside, role and reason was explained for visit. Patient confirmed that he lives with his Bettina Sharp at [address] in [place]. Patient stated he does not use DME at home and completed ADL?S independently. Patients PCP is Dr. Diana and his last appointment was in April 2025. His pharmacy of choice is [facility]. Patient stated that in case he is unable to make medical decisions on his own he would like his Bettina to make them. Patient stated that once he is medically clear he would like to return home and his will provide transportation. Patient stated he does not have any SS needs/questions. Decision maker: Bettina Sharp PH: [phone] PCP: Dr. Diana D/C: Home
[2025-06-01 09:04] LABS: OBS Card Lot # 0124; OBS Developer Expiration Date 02-28-2027; OBS Developer Lot # 424; OBS Performed By DALES; OBS QC OK? Yes; Occult Blood, Stool Positive (Negative)
--- NOTE | 2025-06-01 09:17 | ESPR_ITS ---
<Statement entered by Matilda Arciniega MD - 06/01/25 13:01> Patient was seen and examined at bedside. I agree on the assessment and plan on this note as documented by resident Korina Nash DO PGY1. 75-year-old male with past medical history of prostate adenocarcinoma stage IVb, hypertension, atrial fibrillation, CAD status post PCI LAD follows Dr. Rodriguez, hypothyroidism and history of nasopharyngeal carcinoma who presented to [facility] with a chief complaint of bright red blood in stool, admitted for GI bleed workup. Patient currently on GoLytely undergoing colonoscopy prep, scheduled for later this afternoon today is currently clear. We resumed home medication amiodarone and atenolol for history of A-fib, not on anticoagulation, follows Dr. Rodriguez. Will continue to hold aspirin and Plavix in setting of GI bleed. Home dose levothyroxine resumed. Disposition telemetry, post colonoscopy pending GI recommendations, no indication for EGD for now. Case discussed with attending Dr. Lissette Webster MD PGY-2 Documentation for date of: 06/01/25 Subjective Subjective Interval history: Overnight, blood pressure 177/95, hydralazine 10 mg x1 given. Patient was seen and examined at bedside. Patient currently drinking GoLytely, reports initially bright red blood in stool while drinking GoLytely however has continued drinking GoLytely and feces became only brown and clear with no further bright red blood. Patient endorses lower abdominal pain however improved since admission where pain was diffuse. Patient is scheduled for colonoscopy today. Diet per GI discretion post colonoscopy. Continue IV pantoprazole 40 mg twice daily. Restarted home atenolol 50 daily iso high blood pressure overnight. Plavix and ASA held iso GI bleed. Restarted home atorvastatin 80 mg QD. Exam Vital Signs Temp Pulse Resp BP Pulse Ox O2 Del Method 97.7 F 72 12 144/84 H 94 L Room Air 06/01/25 08:00 06/01/25 08:06/01/25 08:00 06/01/25 08:25 06/01/25 08:00 06/01/25 08:00 Narrative Exam GENERAL: AOx3, no acute distress HEENT: NC/AT, mucous membranes moist, bilateral sclera anicteric CARDIOVASCULAR: regular rate and rhythm, S1/S2 present, no murmurs appreciated PULMONARY: clear to auscultation bilaterally, no rales/rhonchi/wheezes ABDOMINAL: soft, non-distended, no rebound/guarding, bowel sounds present, lower abdominal tenderness on palpation EXTREMITIES: no peripheral edema SKIN: warm and dry, intact, no rashes NEURO: CN II-XII grossly intact, no focal deficits, alert, following commands Objective Labs 06/01/25 04:20 06/01/25 04:20 Labs: Laboratory Results - last 24 hr 05/31/25 06/01/25 12:35 04:20 WBC 8.2 8.1 RBC 3.73 L 3.82 L Hgb 13.3 L 13.5 Hct 38.7 L 39.9 L MCV 104 H 105 H MCH 35.7 H 35.3 H MCHC 34.4 33.8 RDW Std Deviation 55.5 H 56.3 H Plt Count 140 147 Neut % (Auto) 65 62 Lymph % (Auto) 16 18 Hardeman % (Auto) 15 H 14 H Eos % (Auto) 3 5 Baso % (Auto) 1 0 Neut # (Auto) 5.3 5.0 Lymph # (Auto) 1.4 1.5 Hardeman # (Auto) 1.2 H 1.1 H Eos # (Auto) 0.3 0.4 Baso # (Auto) 0.0 0.0 Immature Gran # (Auto) 0.02 H 0.04 H Absolute Nucleated RBC 0.00 0.00 Immature Gran % 0 1 H Nucleated RBC % 0 0 PT 10.7 INR 1.0 APTT 24.5 Sodium 143 141 Potassium 4.1 4.3 Chloride 111 H 106 Carbon Dioxide 22.4 24.1 Anion Gap 10 11 BUN 22 17 Creatinine 1.4 H 1.3 Estim Creat Clear Calc 44.1 L 47.5 L eGFR 52 L 57 L BUN/Creatinine Ratio 16 13 Glucose 135 H 86 Calculated Osmolality 290 281 Calcium 9.9 9.5 Corrected Calcium 9.9 9.5 Phosphorus 3.1 Magnesium 1.8 Total Bilirubin 0.8 0.8 AST 33 36 H ALT 36 35 Alkaline Phosphatase 72 74 Troponin I 0.024 Total Protein 6.3 6.2 Albumin 4.2 4.1 Globulin 2.1 L 2.1 L Albumin/Globulin Ratio 2.0 2.0 Lipase 38 Blood Type O Positive Antibody Screen NEGATIVE Blood Bank Wristband ID Yes Quality Measures Quality Measures none Advance care planning discussed with:: patient Assessment & Plan Assessment Current Active Medications: Generic Name Dose Route Start Last Admin Trade Name Freq PRN Reason Stop Dose Admin Acetaminophen 650 mg 05/31/25 15:29 05/31/25 21:37 Acetaminophen 325 Mg Tablet PO 06/30/25 15:28 650 mg Q6H PRN Administration Fever >101.5 OR pain 1-3 Albuterol/Ipratropium 3 ml 05/31/25 15:29 Albuterol/Ipratropium (Duoneb) Rt Adriane 3 Ml Nebu INH 06/30/25 15:28 Q2HR PRN SHORTNESS OF BREATH OR WHEEZE Amiodarone HCl 200 mg 05/31/25 21:00 06/01/25 08:23 Amiodarone Hcl 200 Mg Tablet PO 06/30/25 20:59 200 mg BID POOJA Administration Atenolol 50 mg 06/01/25 09:00 06/01/25 08:25 Atenolol 25 Mg Tablet PO 07/01/25 08:59 50 mg QDAY POOJA Administration Levothyroxine Sodium 125 mcg/ 150 mcg 06/01/25 06:00 06/01/25 05:37 Levothyroxine Sodium 25 mcg PO 07/01/25 05:59 150 mcg ACBR POOJA Administration Nicotine 21 mg 05/31/25 18:09 Nicotine Patch 21 Mg/24 Hr Patch.Td24 TOP 06/30/25 18:14 QDAY PRN Nicotine withdx Pantoprazole Sodium 40 mg 05/31/25 21:00 06/01/25 08:23 Pantoprazole Inj 40 Mg Vial IVP 06/30/25 20:59 40 mg BID POOJA Administration Plan Josiah Sharp is a 75M with pmhx significant for prostate adenocarcinoma stage IVb, hypertension, atrial fibrillation, CAD s/p PCI LAD follows Dr. Rodriguez, hypothyroidism and history of nasopharyngeal carcinoma who presented to [facility] ED 05/31 for hematochezia, admitted for GI bleed workup. #GI bleed workup: Upper vs Lower #Anemia secondary to blood loss #Hematochezia #Macrocytic anemia Patient presented with 1 day of bright blood rectal bleed with no melena, hematochezia, hematuria and hematemesis. Concern for possible lower GI bleed due to patient clinical presentation. Rectal exam showed melanotic stool strongly positive for occult blood with no active bleeding. On admission hemoglobin 13.3, hematocrit 38.7. MCV 104. Ddx: hemorrhoids, rectal metastasis, diverticulitis, bleeding diverticulosis, AVMs CTAP showed colonic diverticulosis, rectal wall thickened (ddx includes proctitis, rectal tumor), infrarenal abdominal aortic aneurysm AP dimension 3.7cm Plan: - GI consulted rec appreciated: Golytely started, colonoscopy today - IV pantoprazole 40 mg BID - CTM H&H #Atrial fibrillation RVR, rate controlled History of A-fib rate controlled on amiodarone 200 mg BID. Not on any anticoagulation. Follows enamel drier Dr. Rodriguez. In the ED blood pressure was 181/110 and HR 89. EKG showed sinus rhythm with QTc of 505 CHADsVAS score 4.8 and?6.7% risk of stroke/TIA/systemic embolism HAS-BLED score 5 - pt is at high risk for major bleeding Plan: - Resume home PO amiodarone 200 mg BID - Resume home PO atenolol 50 mg QD - Patient not on any anticoagulation only on aspirin and plavix per enamel drier - Tele for cardiac monitoring - Keep K>4 and Mg>2 #CAD s/p LAD stent 2022 #Severe R carotid stenosis History of coronary artery disease s/p stent placement by on 03/22/2023 in LAD. Normal left ventricular function, EF 65-70%. On 07/23/2024 angiogram showed 90% stenosis of right internal carotid artery. Patient currently reports no chest pain. Plan: - Hold aspirin and Plavix, currently being worked up for GI bleed - Keep K>4 and Mg>2 - CTM CBC and CMP #Hypothyroidism Has hx of hypothyroidism. 04/03 TSH wnl 3.52 and T4 elevated 1.92 Plan: - Continue home dose levothyroxine 150 mcg QD #Primary Hypertension #HLD Has history of HTN and HLD, on atenolol 50 mg QD. Follows enamel drier Dr. Rodriguez On home medication atorvastatin 80 mg p.o. Last lipid panel on 04/03/25: triglyceride 110, cholesterol 180, HDL 74. Plan: - Resume home dose atenolol 50 mg QD and atorvastatin 80 mg QD #CKDIIIa Per labs review, patient has history of stable CKDIIIa since 2023 with GFR 25-55 and baseline Cr 1.4-1.7. Plan: - CTM renal panel - Avoid nephrotoxic medication and renally dose #Prostate Adenocarcinoma stage IVb In 2019 patient had robotic surgery [facility] [id number] for prostate CA and postop, currently on radiation therapy and being followed at [facility]. 03/12/2019 radical prostatectomy CA meds: Nubeqa (Darolutamide), Orgovyx (Relugolix) PSA has been rising up to 21 on 12/17/2024 Plan: - Follow-up with oncology Dr. Traore and [facility] outpatient #Nasopharyngeal carcinoma s/p chemoradiation In 2008 had chemoradiation for nasopharyngeal CA and thus far has no sign of recurrence. Hospital management: Lines: peripheral IV Diet: NPO, pending colonoscopy Bowel: Not indicated, currently on GoLytely GI prophylaxis: IV pantoprazole 40 mg BID DVT prophylaxis: SCDs Disposition: tele for workup and management of GIB CODE STATUS: Full code Plan of care discussed with attending Dr. Castañeda, and PGY-2 Dr. Arciniega. Korina Nash DO PGY-1 Internal Medicine Attending Provider Attestation/Addendum Chelo, Lissette Castañeda DO, attest that I was physically present for the cervantes portions of the service and evaluated the patient with the resident and I reviewed and discussed the case with the resident and agree with the resident's findings and plans of care as documented above Patient seen and evaluated this afternoon. Patient has been resting comfortably and has completed his colon prep. Pending colonoscopy this afternoon. He states he is still has pain in his suprapubic regions to periumbilcal region. Unchanged from yesterday. H/H remains unchanged and is hemodynamically stable. Patient is very concerned that the prostate cancer is the cause for the rectal wall thickening on CT abdomen. He reports resolution of BRBPR. WIll f/u with colonoscopy results otherwise.
[2025-06-01] MEDS: Magnesium Sulfate 2 GM Ivpb 2 GM/50 ML BAG IV (11:37)
--- NOTE | 2025-06-01 13:20 | PC.NURSE ---
MT called pt HR went down to 50 with PVC@ 1315, pt is asleep and asymptomatic, Dr. Arciniega made aware, no new orders given, ANTONIETTA Wade also made aware
--- NOTE | 2025-06-01 17:43 | PD.IMCONS ---
HPI Data of Consult Requesting Physician: Lissette Castañeda DO Primary Care Provider: Jones Diana MD Consult Narrative Reason for consult: Hematochezia History of present illness: 75 years of male admitted with hematochezia multiple episodes CT scan of the abdomen pelvis shows thickening of the rectal wall Patient has a history of stage IVb carcinoma of the prostate currently on oral medication Patient does have a history of coronary artery stents with PTCA on aspirin and Plavix initially was on Eliquis which has been discontinued hypothyroidism chronic atrial fibrillation nasopharyngeal carcinoma cc:: cc: Yvette Castañeda DO Review of Systems Review of Systems Systems Reviewed: All systems reviewed, normal except as documented Past Medical History Surgical History OTHER SURGICAL HX: As in the history of present illness Meds Home Medications and Allergies Home Medications ?Medication ?Instructions ?Recorded ?Confirmed ?Type aspirin 81 mg tablet 81 mg PO QDAY 01/07/21 06/01/25 History atorvastatin 80 mg tablet 80 mg PO QDAY 01/07/21 06/01/25 History clopidogrel 75 mg tablet 75 mg PO QPM 01/07/21 06/01/25 History allopurinol 300 mg tablet 300 mg PO DAILY 03/22/23 06/01/25 History atenolol 50 mg tablet 50 mg PO QDAY 03/22/23 06/01/25 History levothyroxine 25 mcg tablet 150 mcg PO DAILY 03/22/23 06/01/25 History Allergies Allergy/AdvReac Type Severity Reaction Status Date / Time No Known Allergies Allergy Verified 05/31/25 11:19 Exam Vital Signs Temp Pulse Resp BP Pulse Ox O2 Del Method 97.4 F 63 17 162/85 H 97 Room Air 06/01/25 16:00 06/01/25 16:00 06/01/25 16:00 06/01/25 16:00 06/01/25 16:00 06/01/25 16:00 Constitutional Comments: Chronically ill-appearing Routine Respiratory Exam Comments: Normal to auscultation Routine Abdominal Exam Comments: Soft nontender Results Labs 06/02/25 05:17 06/02/25 05:17 Labs: Short CBC 06/01/25 Range/Units 04:20 WBC 8.1 (3.8-10.6) Thou/mm3 Hgb 13.5 (13.5-16.0) g/dL Hct 39.9 L (41.0-53.0) % Plt Count 147 (140-440) Thou/mm3 BMP 06/01/25 04:20 Sodium 141 Potassium 4.3 Chloride 106 Carbon Dioxide 24.1 BUN 17 Creatinine 1.3 Glucose 86 Calcium 9.5 Liver Function 06/01/25 Range/Units 04:20 Total Bilirubin 0.8 (0.3-1.2) mg/dL AST 36 H (0-34) U/L ALT 35 (10-49) U/L Alkaline Phosphatase 74 (46-116) U/L Albumin 4.1 (3.4-4.8) gm/dL Assessment and Plan Additional Assessment & Plan Additional Plan: # Hematochezia with abnormal CT scan of the abdomen pelvis showing rectal wall thickening Plan GoLytely prep and fiberoptic colonoscopy with possible biopsy possible therapeutic intervention under intravenous moderate sedation
--- NOTE | 2025-06-01 18:15 | PC.NURSE ---
Pt transfer to or for procedure via gurney by mahin MANE. Pt aaox4 and stable.
[2025-06-01] MEDS: SODIUM CHLORIDE 0.9% 500 ML 100 ML 20 ML IV (18:30)
--- NOTE | 2025-06-01 19:46 | SUR.PHASEI ---
1930 REPORT GIVEN TO NURSE, PATIENT TRANSFERRED BACK TO ROOM IN STABLE CONDITION.
[2025-06-02] VITALS (7 sets, daily range): BP systolic 127–163; BP diastolic 66–89; PULSE 52–62; RESP 12–95; TEMP 36.1–36.4; O2SAT 93–95; BMI 24.3
[2025-06-02 05:34] LABS: Basophils # (Auto) 0.0 Thou/mm3 (0.0-0.2); Basophils % (Auto) 1 % (0-2.5); Eosinophils # (Auto) 0.3 Thou/mm3 (0.0-0.5); Eosinophils % (Auto) 6 % (0-10); Hematocrit 37.8 % (41.0-53.0); Hemoglobin 12.6 g/dL (13.5-16.0); Immature Granulocytes Auto 0.03 Thou/mm3 (0.00-0.00); Lymphocytes # (Auto) 1.3 Thou/mm3 (1.0-4.8); Lymphocytes % (Auto) 22 % (10-50); Mean Corpuscular HGB Conc 33.3 g/dl (31.0-37.0); Mean Corpuscular Hemoglobin 35.0 pg (25.0-35.0); Mean Corpuscular Volume 105 fL (80-100); Monocytes # (Auto) 0.9 Thou/mm3 (0.0-0.8); Monocytes % (Auto) 15 % (0-12); Neutrophils # (Auto) 3.3 Thou/mm3 (1.8-7.7); Neutrophils % (Auto) 56 % (37-80); Nucleated Red Blood Cell # 0.00 Thou/mm3 (0.00-0.00); Nucleated Red Blood Cell % 0 /100 WBC (0); Platelet Count 128 Thou/mm3 (140-440); RDW Standard Deviation 56.7 fL (35.1-43.9); Red Blood Count 3.60 Miln/mm3 (4.50-5.90); White Blood Count 5.8 Thou/mm3 (3.8-10.6)
[2025-06-02] MEDS: LEVOTHYROXINE SODIUM 125 MCG, LEVOTHYROXINE SODIUM 25 MCG 150 MCG PO (05:55)
[2025-06-02 06:00] LABS: Alanine Aminotransferase 29 U/L (10-49); Albumin, Serum 3.8 gm/dL (3.4-4.8); Albumin/Globulin Ratio 2.2 (1.2-2.2); Alkaline Phosphatase 65 U/L (46-116); Anion Gap 7 (7-16); Aspartate Amino Transferase 28 U/L (0-34); BUN/Creatinine Ratio 13 Ratio (12-20); Bilirubin,Total 0.4 mg/dL (0.3-1.2); Blood Urea Nitrogen 19 mg/dL (9-23); Calcium 9.2 mg/dL (8.3-10.6); Calcium (Corrected) 9.4 mg/dL (8.5-10.1); Carbon Dioxide 28.2 mMol/L (20.0-31.0); Chloride 107 mMol/L (98-107); Creatinine (Component) 1.5 mg/dL (0.6-1.3); Estimated Creatinine Clearance 41.2 mL/min (>60); Globulin 1.7 gm/dL (2.3-3.5); Glucose 88 mg/dL (74-106); Magnesium 2.1 mg/dL (1.6-2.6); Osmolality,Calculated 284 (275-295); Potassium 4.7 mMol/L (3.4-5.1); Sodium 142 mMol/L (136-145); Total Protein 5.5 gm/dL (5.7-8.2); eGFR 48 See Note
[2025-06-02] MEDS: AMIODARONE HCL 200 MG TABLET PO (08:17)
--- NOTE | 2025-06-02 11:01 | ESDS_ITS ---
<Statement entered by Lissette Castañeda DO - 06/03/25 14:34> I, Lissette Castañeda DO, attest that I was physically present for the cervantes portions of the service and evaluated the patient with the resident and I reviewed and discussed the case with the resident and agree with the resident's findings and plans of care as documented above <Statement entered by Gurinder Chairez MD - 06/02/25 14:50> 75-year-old male with past medical history of CAD status post PCI, A-fib, prostate cancer presented to the ED for hematochezia and was admitted for GI bleed workup. 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 Recommendations from gastroenterology was to start hydrocortisone enemas twice a day for 2 weeks followed by daily enemas for 1 month. Patient will follow-up with tonsorial artist and with radiation oncologist for monitoring of cancer (nasopharyngeal carcinoma). I have personally seen and examined the patient. I agree with the resident's discharge summary as documented below. Gurinder Chairez DO PGY-2 Internal Medicine - GME Planned Discharge Date 06/02/25 DS: Providers Provider Date of admission: 05/31/25 15:18 Primary care physician: Jones Diana MD Admitting Provider: Lissette Castañeda DO Attending Provider on Admission: Lissette Castañeda DO Consults: 05/31/25 13:29 Consult to Gastroenterology Stat Comment: Lower GI bleed Consulting Provider: Yong Haines 05/31/25 18:09 Referral Smoking Cessation Counseling Routine Comment: Smoking Cessation Education Needed Attending Provider on DC: Lissette Castañeda DO Discharging Provider: RESIDENT Ricardo DS: Diagnosis Problem List Completed Was Problem List Reviewed/Reconciled?: Yes Hospital Course Hospital Course Hospital course: Summary: Patient is a 75-year-old male with past medical history of prostate adenocarcinoma stage IVb s/p radiation, hypertension, atrial fibrillation, CAD s/p PCI LAD (follows Dr. Rodriguez), hypothyroidism and history of nasopharyngeal carcinoma who presented to [facility] on 05/31 with a chief complaint of bright red blood in stool, admitted for GI bleed workup. ED Course: -Initial vitals: BP 181/110, otherwise within normal limits -Labs: Hgb 31.3, HCT 38.7, MCV 104, Cr 1.4, GFR 52, glucose 135 -Imaging: Abdominal/pelvis CT showed infrarenal abdominal aneurysm, diverticulosis, rectal wall thickening. EKG unremarkable -Given Zofran 4mg for nausea, morphine 4mg , pantoprazole 80 mg, ceftriaxone. -Patient was admitted for GI bleed evaluation and management Reason for hospitalization: Patient is a 75-year-old male with past medical history of prostate adenocarcinoma stage IVb s/p radiation 5 years ago, hypertension, atrial fibrillation, CAD status post PCI LAD follows Dr. Rodriguez, hypothyroidism and history of nasopharyngeal carcinoma who presented on 05/31 for bright red blood in stool, admitted for GI bleed workup. GI Dr. Haines consulted, completed colonoscopy which showed grade 2 internal hemorrhoids and erythematous mucosa at the sigmoid and descending colon likely secondary to radiation proctitis. Recommended hydrocortisone enemas twice daily for 2 weeks, follow-up with Dr. Haines when completed course. Recommend to continue holding aspirin and Plavix in setting of GI bleed. Continue amiodarone 200 mg once daily, per geothermal powerplant supervisor Dr. Rodriguez's recommendation to patient. Hold atenolol due to low heart rate, recommend follow up with Dr. Rodriguez for further instructions on when to resume. Continue all other home meds. Patient has follow up appointment with oncologist Dr. Traore on 06/09/25. Patient was safely discharged home. Discharge Recommendations: -Please use hydrocortisone 100mg/ 60m enema twice a day for 2 week course for internal hermorrhoids - Follow-up with GI Dr. Haines within 2 weeks - Continue amiodarone 200 mg daily per geothermal powerplant supervisor Dr. Rodriguez - Hold Atenolol 50mg by mouth daily until you are seen by PCP Dr. Diana - Hold aspirin and Plavix until you are seen by PCP or geothermal powerplant supervisor Dr. Rodriguez - Continue all other home medications - Please follow-up with your PCP within 1 week of discharge; or follow-up with resident clinic at [facility] [address] [place] [address] - If your symptoms worsen or if you develop new chest pain, shortness of breath, abdominal pain or bleeding - please come back to the ED immediately. 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 #Anemia secondary to blood loss #Hematochezia #Macrocytic anemia #Atrial fibrillation RVR, rate controlled #CAD s/p LAD stent 2022 #Severe R carotid stenosis #Hypothyroidism #Primary Hypertension #HLD #CKDIIIa #Prostate Adenocarcinoma stage IVb #Nasopharyngeal carcinoma s/p chemoradiation Disposition: Safe discharge to home Time Spent with Patient Time attestation: Total time spent providing and/or coordinating discharge services: at least 30 minutes of care coordintation Time spent: Greater than 30 minutes Exam Vital Signs Temp Pulse Resp BP Pulse Ox O2 Del Method O2 Flow Rate 97.0 F 57 L 19 150/87 H 95 Room Air 2 06/02/25 08:00 06/02/25 09:48 06/02/25 09:48 06/02/25 08:17 06/02/25 09:48 06/02/25 08:00 06/01/25 19:30 Narrative Exam Physical Exam General: Awake and in no acute distress. Conversational and non-toxic appearing. HEENT: Normocephalic, atraumatic, mucous membranes moist. Heart: Regular rate and rhythm, normal S1 and S2, no murmurs. Lungs: Clear to auscultation with no wheezing or crackles. Abdomen: Soft, nondistended, nontender, positive bowel sounds. No guarding or rebound tenderness. Neurologic: Alert and oriented x3, no gross neurological deficit, and patient able to move all 4 extremities. Extremities: No edema. Skin: No rash or ecchymoses. Discharge Plan Plan Patient Disposition: HOME (Self Care) Patient condition on transfer: Stable Care Plan Goals: Please use hydrocortisone 100mg/ 60m enema twice a day for internal hermorrhoids Follow-up with Dr. Haines within 2 weeks for refill of your enema Continue all other home medications Please follow-up with your PCP within 1 week of discharge; or follow-up with resident clinic at [facility] [address] [place] [address] If your symptoms worsen or if you develop new chest pain, shortness of breath, abdominal pain or bleeding - please come back to the ED immediately. Prescriptions/Referrals Prescriptions/Med Rec: New hydrocortisone 100 mg/60 mL Enema 100 mg CA BID 14 Days Qty: 1680 0RF Continued atorvastatin 80 mg Tablet 80 mg PO QDAY aspirin 81 mg Tablet 81 mg PO QDAY clopidogrel 75 mg Tablet 75 mg PO QPM calcitriol 0.25 mcg Capsule 0.5 mcg PO QDAY Qty: 30 0RF levothyroxine 25 mcg tablet 150 mcg PO DAILY allopurinol 300 mg Tablet 300 mg PO DAILY atenolol 50 mg Tablet 50 mg PO QDAY Changed amiodarone 200 mg Tablet 200 mg PO QDAY 30 Days Qty: 30 1RF Referrals: Yong Haines MD [Physician] - Jones Diana MD [Primary Care Provider] - Patient/Caregiver Discharge Instructions Education Materials: Bleeding Gastrointestinal, Discharge Instructions for ..., Diagnosing Hemorrhoids Print Language: Maldivian Stand Alone Forms: Amarilis Award Info., Patient Portal Info Letter Discharge Order Discharge Orders: Discharge (Routine); Ordered 06/02/25 Ordered By: Gurinder Chairez Quality Discharge Quality Measures VTE prophylaxis
[2025-06-02] MEDS: HYDROCORTISONE ENEMA 100 MG/60 ML BTL PR (11:23)
--- NOTE | 2025-06-02 11:58 | PC.NURSE ---
Per MD Haines ok to dc pt f/u in about 2 wks. Per hospitalist Saad continue with discharging pt.
--- NOTE | 2025-06-02 19:55 | ESPR_ITS ---
Documentation for date of: 06/02/25 Subjective Subjective Interval history: late entry for the note Case discussed with internal medicine team No further bleeding Patient has radiation enterocolitis Hydrocortisone enema once a day I will see the patient back in 2 weeks in the office Exam Vital Signs Temp Pulse Resp BP Pulse Ox O2 Del Method O2 Flow Rate 97.0 F 60 18 163/89 H 94 L Room Air 2 06/02/25 12:00 06/02/25 12:00 06/02/25 12:00 06/02/25 12:00 06/02/25 12:00 06/02/25 12:00 06/02/25 12:00 Objective Labs 06/02/25 05:17 06/02/25 05:17 Labs: Laboratory Results - last 24 hr 06/02/25 05:17 WBC 5.8 RBC 3.60 L Hgb 12.6 L Hct 37.8 L MCV 105 H MCH 35.0 MCHC 33.3 RDW Std Deviation 56.7 H Plt Count 128 L Neut % (Auto) 56 Lymph % (Auto) 22 Charles % (Auto) 15 H Eos % (Auto) 6 Baso % (Auto) 1 Neut # (Auto) 3.3 Lymph # (Auto) 1.3 Charles # (Auto) 0.9 H Eos # (Auto) 0.3 Baso # (Auto) 0.0 Immature Gran # (Auto) 0.03 H Absolute Nucleated RBC 0.00 Immature Gran % 1 H Nucleated RBC % 0 Sodium 142 Potassium 4.7 Chloride 107 Carbon Dioxide 28.2 Anion Gap 7 BUN 19 Creatinine 1.5 H Estim Creat Clear Calc 41.2 L eGFR 48 L BUN/Creatinine Ratio 13 Glucose 88 Calculated Osmolality 284 Calcium 9.2 Corrected Calcium 9.4 Magnesium 2.1 Total Bilirubin 0.4 AST 28 ALT 29 Alkaline Phosphatase 65 Total Protein 5.5 L Albumin 3.8 Globulin 1.7 L Albumin/Globulin Ratio 2.2 Impressions Impression: Radiation colitis Hydrocortisone enema rectally Assessment & Plan A&P Narrative # Hematochezia with abnormal CT scan of the abdomen pelvis showing rectal wall thickening Plan GoLytely prep and fiberoptic colonoscopy with possible biopsy possible therapeutic intervention under intravenous moderate sedation Time Spent With Patient Time: Total time spent is greater than 50% in coordination of care (as documented) at patient's floor/unit and/or counseling patient:
== END 2025-06-02 12:25 | disposition home or self-care (01) | DRG 394 ==
LOC: SERX 14:47 → SERHOLD 15:39 → S3NX 06-01 14:31
PROVIDERS: Physician Assistant; Specialist; Admitting Provider Internal Medicine; Emergency Provider Family Medicine; PCP Internal Medicine; Visit Provider Internal Medicine
PROC: 0DJD8ZZ Inspection of Lower Intestinal Tract, Via Natural or Artificial Opening Endoscopic (ICD-10-PCS; CPT 45378; principal; 2025-06-01 18:00)
DX: K64.1 Second degree hemorrhoids (principal); I48.20 Chronic atrial fibrillation, unspecified; K52.0 Gastroenteritis and colitis due to radiation; K62.7 Radiation proctitis; Z85.818 Personal history of malignant neoplasm of other sites of lip, oral cavity, and pharynx; Z85.46 Personal history of malignant neoplasm of prostate; E03.9 Hypothyroidism, unspecified; I12.9 Hypertensive chronic kidney disease with stage 1 through stage 4 chronic kidney disease, or unspecified chronic kidney disease; D50.0 Iron deficiency anemia secondary to blood loss (chronic); Z95.5 Presence of coronary angioplasty implant and graft; D53.9 Nutritional anemia, unspecified; I25.10 Atherosclerotic heart disease of native coronary artery without angina pectoris; Z92.3 Personal history of irradiation; E78.5 Hyperlipidemia, unspecified; N18.31 Chronic kidney disease, stage 3a; Y84.2 Radiological procedure and radiotherapy as the cause of abnormal reaction of the patient, or of later complication, without mention of misadventure at the time of the procedure; Z79.82 Long term (current) use of aspirin; I71.43 Infrarenal abdominal aortic aneurysm, without rupture; Z79.890 Hormone replacement therapy; K57.30 Diverticulosis of large intestine without perforation or abscess without bleeding; Z79.899 Other long term (current) drug therapy; Z92.21 Personal history of antineoplastic chemotherapy
CPT/HCPCS: 36415; 74177; 80053; 81001; 82270; 83690; 83735; 84100; 84484; 85025; 85610; 85730; 86850; 86900; 86901; 93005; 93225; 96365; 96375; 96376; 99284; A4649; J0360; J0696; J1200; J2250; J2270; J2405; J2470; J3010; J3475; J7999; Q9967; A9270

== ENCOUNTER 2025-06-19 09:05 | Outpatient (RCR) | payer MEDICARE, OTHER, SELFPAY ==
--- NOTE | 2025-06-19 10:22 | CTCFLWUP_ITS ---
[facility] [address] [place], [place] [address] FOLLOW-UP NOTE Date: 06/19/2025 MR#: [id number] Name: MIKEY HAWKINS : 1950 Dx: C61 prostate CA. Identification. 2008 chemoradiation for nasopharyngeal CA no sign of recurrence. 03/08/2019 radical cystectomy [facility] T3b N1 postop XRT 6840 cGy completed 01/05/2010. Received 1 Lupron shot given by local urologist had MD 1 day later. PSA roly up to 21 on 12/17/2024. PSMA PET January 08, 2025 showed increased uptake left common iliac node left internal/external left obturator lymph node left perirectal lymph node and multiple left pelvic node. Bone mets T5-T9 lateral sixth rib. MRI T-spine 03/20/2025 with osseous mets but no sign of impending fracture impinging on the spinal cord. Dr. Colby Connor prostate cancer specialist [facility] recommended Relugolix with improved CVS profile with PSA lowered to 4.18 on blood draw of 04/03/2025. Was prescribed an antiandrogen, darolutamide which caused him to both gain weight while suppressing appetite and made him more irritable. Told him to stop taking this med. I will speak with Dr. Connor the medical oncologist who was advising patient on his meds. Patient is tolerating the LHRH antagonist Relugolix well and will continue this. Electronically signed by: Ralf Traore M.D. 06/19/2025 10:20 AM
== END 2025-07-01 23:59 | disposition home or self-care (01) ==
LOC: SCTC 09:05
PROVIDERS: PCP Internal Medicine; Referring Provider Internal Medicine; Visit Provider Radiology Therapeutic Radiology
DX: C61 Malignant neoplasm of prostate (principal); C79.51 Secondary malignant neoplasm of bone
CPT/HCPCS: 99213; G0463

== ENCOUNTER → 2025-09-05 | Outpatient (CLI) | payer MEDICARE, OTHER, SELFPAY ==
[2025-09-05 09:20] LABS: Collection Type, Urine Clean Catch; Squamous Epithelial Cell,Urine 0 /hpf (0-5)
[2025-09-05 09:43] LABS: Bilirubin,Urine Negative (Negative); Blood,Urine Negative (Negative); Clarity,Urine Clear (Clear/Hazy); Color,Urine Yellow (Lt Yel-Yel); Glucose, Urine Negative (Negative); Ketones,Urine Negative (Negative); Leukocyte Esterase,Urine Negative (Negative); Nitrite,Urine Negative (Negative); PH,Urine 5.5 (5.0-7.0); Protein,Urine 1+ (Neg - Trace); RBC,Urine 1 /hpf (0-3); Specific Gravity,Urine 1.023 (1.001-1.035); Urobilinogen,Urine 2.0 mg/dL (0.0-1.0); WBC,Urine < 1 /hpf (0-5)
[2025-09-05 09:46] LABS: Basophils # (Auto) 0.1 Thou/mm3 (0.0-0.2); Basophils % (Auto) 1 % (0-2.5); Eosinophils # (Auto) 0.4 Thou/mm3 (0.0-0.5); Eosinophils % (Auto) 5 % (0-10); Hematocrit 43.0 % (41.0-53.0); Hemoglobin 14.4 g/dL (13.5-16.0); Immature Granulocytes Auto 0.03 Thou/mm3 (0.00-0.00); Lymphocytes # (Auto) 1.9 Thou/mm3 (1.0-4.8); Lymphocytes % (Auto) 26 % (10-50); Mean Corpuscular HGB Conc 33.5 g/dl (31.0-37.0); Mean Corpuscular Hemoglobin 34.5 pg (25.0-35.0); Mean Corpuscular Volume 103 fL (80-100); Monocytes # (Auto) 0.9 Thou/mm3 (0.0-0.8); Monocytes % (Auto) 12 % (0-12); Neutrophils # (Auto) 4.1 Thou/mm3 (1.8-7.7); Neutrophils % (Auto) 56 % (37-80); Nucleated Red Blood Cell # 0.00 Thou/mm3 (0.00-0.00); Nucleated Red Blood Cell % 0 /100 WBC (0); Platelet Count 133 Thou/mm3 (140-440); RDW Standard Deviation 53.5 fL (35.1-43.9); Red Blood Count 4.17 Miln/mm3 (4.50-5.90); White Blood Count 7.3 Thou/mm3 (3.8-10.6)
[2025-09-05 09:53] LABS: Parathyroid Hormone Intact 42.6 pg/ml (18.5-88.0)
[2025-09-05 10:00] LABS: Alanine Aminotransferase 27 U/L (10-49); Albumin, Serum 4.4 gm/dL (3.4-4.8); Albumin/Globulin Ratio 1.9 (1.2-2.2); Alkaline Phosphatase 61 U/L (46-116); Anion Gap 8 (7-16); Aspartate Amino Transferase 30 U/L (0-34); BUN/Creatinine Ratio 15 Ratio (12-20); Bilirubin,Total 0.8 mg/dL (0.3-1.2); Blood Urea Nitrogen 23 mg/dL (9-23); Calcium 9.5 mg/dL (8.3-10.6); Calcium (Corrected) 9.5 mg/dL (8.5-10.1); Carbon Dioxide 25.3 mMol/L (20.0-31.0); Cardiac Risk Estimate 2.7 RATIO (4.0-6.7); Chloride 109 mMol/L (98-107); Cholesterol 179 mg/dL (132-200); Creatinine (Component) 1.5 mg/dL (0.6-1.3); Free T4 (Free Thyroxine) 1.69 ng/dL (0.89-1.76); Globulin 2.3 gm/dL (2.3-3.5); Glucose 108 mg/dL (74-106); HDL Cholesterol 67 mg/dL (40-60); LDL Cholesterol,Calculated 86 mg/dL (0-130); Osmolality,Calculated 287 (275-295); Potassium 4.8 mMol/L (3.4-5.1); Sodium 142 mMol/L (136-145); Thyroid Stimulating Hormone 11.22 uIU/mL (0.55-4.78); Total Protein 6.7 gm/dL (5.7-8.2); Triglycerides 131 mg/dL (30-150); eGFR 48 See Note
[2025-09-05 10:03] LABS: Creatinine MALB Rnd Ur 166 mg/dL (30-125); Microalbumin Creat Ratio 83 mg/gCrea (<30); Microalbumin, Random Urine 138 mg/L (0-300)
== END | disposition home or self-care (01) ==
LOC: COPL 08:39
PROVIDERS: PCP Internal Medicine; Referring Provider Internal Medicine; Visit Provider Internal Medicine Cardiovascular Disease
DX: E78.5 Hyperlipidemia, unspecified (principal); I12.9 Hypertensive chronic kidney disease with stage 1 through stage 4 chronic kidney disease, or unspecified chronic kidney disease; N18.30 Chronic kidney disease, stage 3 unspecified; E03.9 Hypothyroidism, unspecified
CPT/HCPCS: 36415; 80053; 80061; 81001; 82043; 82570; 83970; 84439; 84443; 85025

== ENCOUNTER → 2025-09-15 | Outpatient (CLI) | payer MEDICARE, OTHER, SELFPAY ==
[2025-09-15 09:31] LABS: Basophils # (Auto) 0.1 Thou/mm3 (0.0-0.2); Basophils % (Auto) 1 % (0-2.5); Eosinophils # (Auto) 0.4 Thou/mm3 (0.0-0.5); Eosinophils % (Auto) 6 % (0-10); Hematocrit 43.0 % (41.0-53.0); Hemoglobin 14.5 g/dL (13.5-16.0); Immature Granulocytes Auto 0.05 Thou/mm3 (0.00-0.00); Lymphocytes # (Auto) 1.6 Thou/mm3 (1.0-4.8); Lymphocytes % (Auto) 25 % (10-50); Mean Corpuscular HGB Conc 33.7 g/dl (31.0-37.0); Mean Corpuscular Hemoglobin 34.8 pg (25.0-35.0); Mean Corpuscular Volume 103 fL (80-100); Monocytes # (Auto) 0.8 Thou/mm3 (0.0-0.8); Monocytes % (Auto) 12 % (0-12); Neutrophils # (Auto) 3.5 Thou/mm3 (1.8-7.7); Neutrophils % (Auto) 55 % (37-80); Nucleated Red Blood Cell # 0.00 Thou/mm3 (0.00-0.00); Nucleated Red Blood Cell % 0 /100 WBC (0); Platelet Count 157 Thou/mm3 (140-440); RDW Standard Deviation 53.0 fL (35.1-43.9); Red Blood Count 4.17 Miln/mm3 (4.50-5.90); White Blood Count 6.3 Thou/mm3 (3.8-10.6)
[2025-09-15 09:46] LABS: Alanine Aminotransferase 17 U/L (10-49); Albumin, Serum 4.5 gm/dL (3.4-4.8); Albumin/Globulin Ratio 2.0 (1.2-2.2); Alkaline Phosphatase 60 U/L (46-116); Anion Gap 6 (7-16); Aspartate Amino Transferase 24 U/L (0-34); BUN/Creatinine Ratio 14 Ratio (12-20); Bilirubin,Total 0.7 mg/dL (0.3-1.2); Blood Urea Nitrogen 21 mg/dL (9-23); Calcium 9.5 mg/dL (8.3-10.6); Calcium (Corrected) 9.5 mg/dL (8.5-10.1); Carbon Dioxide 27.0 mMol/L (20.0-31.0); Chloride 109 mMol/L (98-107); Creatinine (Component) 1.5 mg/dL (0.6-1.3); Globulin 2.3 gm/dL (2.3-3.5); Glucose 98 mg/dL (74-106); Osmolality,Calculated 286 (275-295); Potassium 5.0 mMol/L (3.4-5.1); Sodium 142 mMol/L (136-145); Total Protein 6.8 gm/dL (5.7-8.2); eGFR 48 See Note
[2025-09-15 13:04] LABS: Prostate Specific Antigen 1.72 ng/mL (0-4.00)
== END | disposition home or self-care (01) ==
LOC: SCTO 08:43
PROVIDERS: PCP Internal Medicine; Referring Provider Radiology Therapeutic Radiology; Visit Provider Radiology Therapeutic Radiology
DX: C11.9 Malignant neoplasm of nasopharynx, unspecified (principal); L65.9 Nonscarring hair loss, unspecified; F17.200 Nicotine dependence, unspecified, uncomplicated; C61 Malignant neoplasm of prostate
CPT/HCPCS: 36415; 80053; 84153; 85025

== ENCOUNTER 2025-09-18 09:27 | Outpatient (RCR) | payer MEDICARE, OTHER, SELFPAY ==
--- NOTE | 2025-09-18 10:00 | CTCFLWUP_ITS ---
[facility] [address] [place], [place] [address] FOLLOW-UP NOTE Date: 09/18/2025 MR#: [id number] Name: MIKEY HAWKINS : 1950 Dx: C 61 prostate cancer Identification. 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 03/08/2019 radical prostatectomy [facility] T3b N1 postop XRT 6840 cGy completed 01/05/2010. Received 1 Lupron shot given by local urologist had [place] 1 day later. PSA roly up to 21 and 12/17/2024. PSMA PET 01/08/2025 showed increased uptake in pelvic nodes and bone mets T5 T9 lateral sixth rib. MRI T-spine 03/20/2025 with osseous mets but no sign of impending fracture impinging on the spinal cord. Now seeing medical oncologist prostate specialist Dr. Colby Connor at [facility] who has recommended Relugolix with improved CX profile with PSA lowered to 4.18 and blood draw of 04/03/2025. Was also prescribed antiandrogen darolutamide which caused him to gain weight and made him more irritable he stopped this. PSA has dropped to 1.72 most recently however 09/15/2025. He is doing quite well overall, has no bone pain tolerating the Relogolix alone well as a single agent. A#1. History of nasopharyngeal CA prior chemoradiation 2008 no sign of recurrence. A#2. Prostate CA radical prostatectomy 03/08/2019. Postop XRT for pT3bNI 6040 cGy completed 01/05/2010. A#3. [place] after 1 Lupron shot. which was stopped. A#4. Prescribed Relugolix which he is tolerating well and has kept his PSA to low to 1.72 on 09/15/2025. Could not tolerate antiandrogen darolutamide which was stopped. A#5. Seeing Dr. Colby Connor prostate cancer specialist via telehealth regularly. I will ask him whether Xgeva may be helpful at this time. Patient told to take calcium and vitamin D. Patient is edentulous and has no jaw problems.. Electronically signed by: Ralf Traore M.D. 09/18/2025 9:58 AM
== END 2025-10-01 23:59 | disposition home or self-care (01) ==
LOC: SCTC 09:27
PROVIDERS: PCP Internal Medicine; Referring Provider Internal Medicine; Visit Provider Radiology Therapeutic Radiology
DX: C61 Malignant neoplasm of prostate (principal); C79.51 Secondary malignant neoplasm of bone; Z90.79 Acquired absence of other genital organ(s); Z92.3 Personal history of irradiation; Z85.818 Personal history of malignant neoplasm of other sites of lip, oral cavity, and pharynx; Z92.21 Personal history of antineoplastic chemotherapy
CPT/HCPCS: 99213; G0463